=== PATIENT | female | born 1940 | race Caucasian/White ===

== ENCOUNTER → 2016-11-08 | Outpatient (CLI) | payer BC ==
[~2016-11-08] MED LIST: ASPEC81 PO; CRG125 PO; GLC500 PO; LISI-461 PO; PANT40TA PO; SIMV-151 PO
--- NOTE | 2016-11-09 14:35 | MAMMOGRAPHY REPORT ---
BILATERAL DIGITAL SCREENING MAMMOGRAM WITH CAD: 11/08/2016 CLINICAL HISTORY: Routine screening. Patient has no complaints. TECHNIQUE: Bilateral CC and MLO views as well as left cleavage view were obtained. Current study wa s also evaluated with a Computer Aided Detection (CAD) system. COMPARISON: Comparison is made to exams dated: 11/05/2015 mammogram, 07/01/2014 mammogram, 01/19/2012 mammogram, 01/18/2011 mammogram, 01/20/2010 ultrasound, and 01/20/2010 mammogram - [facility] enter. BREAST COMPOSITION: There are scattered areas of fibroglandular density in both breasts. FINDINGS: There are mild vascular calcifications in the breasts. Scattered round, punctate and shannon gn rim calcifications. No suspicious mass, architectural distortion or cluster of suspicious microc alcifications is seen. IMPRESSION: ACR BI-RADS CATEGORY 1: NEGATIVE There is no mammographic evidence of malignancy. A 1 year screening mammogram is recommended. The p atient will receive written notification of the results. Approximately 10% of breast cancers are not detected with mammography. A negative mammographic repor t should not delay biopsy if a clinically suggestive mass is present. Karla Bishop M.D. ay/:11/08/2016 17:08:13 Certified Drug Counselor: Tabatha KING(R)(M), [facility] letter sent: Normal 1/2 BI-RADS Code: ACR BI-RADS Category 1: Negative
== END | disposition home or self-care (01) ==
LOC: C.MAMM 08:52
PROVIDERS: ATTEND Family Medicine
DX: Z12.31 Encounter for screening mammogram for malignant neoplasm of breast (principal)

== ENCOUNTER → 2017-11-10 | Outpatient (CLI) | payer BC ==
--- NOTE | 2017-11-13 07:48 | MAMMOGRAPHY REPORT ---
BILATERAL DIGITAL SCREENING MAMMOGRAM TOMOSYNTHESIS WITH CAD: 11/10/2017 CLINICAL HISTORY: Routine screening. TECHNIQUE: Breast tomosynthesis in addition to standard 2D mammography was performed. Current study was also evaluated with a Computer Aided Detection (CAD) system. COMPARISON: Comparison is made to exams dated: 11/08/2016 mammogram, 11/05/2015 mammogram, 07/01/2014 mammogram, 01/19/2012 mammogram, 01/18/2011 mammogram, and 01/13/2010 mammogram - [facility]ter. BREAST COMPOSITION: There are scattered areas of fibroglandular density in both breasts. FINDINGS: No suspicious masses, calcifications, or areas of architectural distortion are noted in ei ther breast. There has been no significant interval change compared to prior exams. Scattered bilater al benign-appearing calcifications are not significantly changed. IMPRESSION: ACR BI-RADS CATEGORY 2: BENIGN There is no mammographic evidence of malignancy. A 1 year screening mammogram is recommended. The pa tient will receive written notification of the results. Approximately 10% of breast cancers are not detected with mammography. A negative mammographic report should not delay biopsy if a clinically suggestive mass is present. Joleen Rueda M.D. /:11/10/2017 15:13:55 Roll Line Operator: Azam KING(Genny)(Bree), [facility] letter sent: Normal 1/2 BI-RADS Code: ACR BI-RADS Category 2: Benign
== END | disposition home or self-care (01) ==
LOC: C.MAMM 08:37
PROVIDERS: ATTEND Family Medicine
DX: Z12.31 Encounter for screening mammogram for malignant neoplasm of breast (principal)

== ENCOUNTER 2021-04-02 09:28 | Inpatient (IN) ==
[2021-04-02] MEDS ORDERED: ALBUT/IPRATROP 3MG/0.5MG NEB 3 ML VIAL INH STA (09:38)
[2021-04-02] MEDS ORDERED: STAT IV Infusion **Titration per Protocol STA ×3 (09:47→17:29)
--- NOTE | 2021-04-02 09:47 | Emergency Department Note ---
History of Present Illness General Chief complaint: Weakness Stated complaint: WEAKNESS Time Seen by Provider: 04/02/21 09:31 History of Present Illness 81-year-old female presents to the ED with a chief complaint of feeling " weary". When asked specific questions, she feels short winded and very weak. She was brought in by EMS. EMS state that BLS on scene had a blood pressure of 66 systolic. She was given a 600 cc normal saline bolus by EMS prior to arrival. They also found her saturations to be 60% on room air. She does not use home oxygen. She was 79% on room air here. The patient reports pedal edema for the past 4 weeks. No additional complaints. The daughter reported to EMS that the patient has been in a steady and progressive decline since January. The patient hit her life alert button today to [facility]. Home Medications Medication Instructions Recorded Confirmed Type aspirin 81 mg tablet,delayed 81 mg PO DAILY 04/12/19 05/01/19 History release (Enteric Coated Aspirin) carvedilol 12.5 mg tablet (Coreg) 12.5 mg PO BID 04/12/19 04/02/21 History loratadine 10 mg tablet (Claritin) 10 mg PO DAILY 04/12/19 05/01/19 History multivitamin 1 tab PO DAILY 04/12/19 05/01/19 History simvastatin 20 mg tablet 20 mg PO QPM 04/12/19 05/01/19 History vitamin B complex (B 1 tab PO .3 x a wk tab 04/12/19 05/01/19 History Complex-Vitamin B12) atorvastatin 40 mg tablet (Lipitor) 40 mg PO HS 04/02/21 04/02/21 History hydrochlorothiazide 12.5 mg capsule 12.5 mg PO DAILY 04/02/21 04/02/21 History losartan 50 mg tablet (Cozaar) 50 mg PO DAILY 04/02/21 04/02/21 History metformin 500 mg tablet,extended 1,000 mg PO BIDM 04/02/21 04/02/21 History release 24 hr Allergies Allergy/AdvReac Type Severity Reaction Status Date / Time Cipro Allergy Mild RASH Verified 10/05/15 07:28 ciprofloxacin Allergy Mild RASH Verified 04/24/19 08:29 clindamycin Allergy Mild Unverified 04/24/19 08:29 Past Med/Surg History Medical History (Updated 04/02/21 @ 13:08 by Bryce Potts DO) B12 deficiency Chronic kidney disease Diabetes H/O cardiomyopathy H/O gastric ulcer H/O malignant neoplasm of endometrium Hyperlipidemia Hypertension Osteoarthritis Stasis dermatitis SVT (supraventricular tachycardia) Surgical History H/O abdominal hysterectomy H/O tubal ligation Social History Smoking Status: Unknown if ever smoked Hx Alcohol Use: No Hx Substance Use: No Preferred Language: Malaysian Communication Ability: Effective Visual Impairment: Limited Hearing Ability: Normal Beliefs That Will Affect Care: None marital status: Current Living Situation: Alone current occupational status: retired Feels Safe at Home: Yes Review of Systems A total of 10 systems reviewed and were otherwise negative Physical Exam Vital Signs Vital Signs - 24 hr 04/02/21 09:29 04/02/21 09:30 04/02/21 09:37 Temperature 36.5 C Temperature Source Oral Pulse Rate 116 H 117 H Pulse Rate [Apical] Pulse Rate from SpO2 Sensor 118 H Respiratory Rate 31 H 42 H Respiratory Effort / Characteristics Blood Pressure 69/50 L 69/50 L Blood Pressure Mean 56 56 Pulse Oximetry 73 L 91 94 Oxygen Delivery Method Room Air Nasal Cannula Oxygen Flow Rate 4 Fraction of Inspired Oxygen SaO2/FiO2 Ratio Sepsis Recent Fever Within 48 Hours No Sepsis New/Unexplained Change in Mental Status No Sepsis Action Taken by Nursing Physician Notified End-Tidal CO2 04/02/21 09:45 04/02/21 09:54 04/02/21 09:58 Temperature Temperature Source Pulse Rate 117 H 116 H Pulse Rate [Apical] 116 H Pulse Rate from SpO2 Sensor 117 H Respiratory Rate 35 H 22 Respiratory Effort / Characteristics Spontaneous Blood Pressure 62/49 L Blood Pressure Mean 53 Pulse Oximetry 94 93 96 Oxygen Delivery Method BiPAP BiPAP BiPAP Oxygen Flow Rate Fraction of Inspired Oxygen 40 40 40 SaO2/FiO2 Ratio 235 Sepsis Recent Fever Within 48 Hours Sepsis New/Unexplained Change in Mental Status Sepsis Action Taken by Nursing End-Tidal CO2 04/02/21 10:00 04/02/21 10:26 04/02/21 10:31 Temperature Temperature Source Pulse Rate 117 H 116 H Pulse Rate [Apical] Pulse Rate from SpO2 Sensor 117 H 115 H Respiratory Rate 27 H 23 21 Respiratory Effort / Characteristics Blood Pressure 71/55 L 61/45 L 64/34 L Blood Pressure Mean 60 50 44 Pulse Oximetry 90 89 L Oxygen Delivery Method BiPAP BiPAP Oxygen Flow Rate Fraction of Inspired Oxygen 40 SaO2/FiO2 Ratio Sepsis Recent Fever Within 48 Hours Sepsis New/Unexplained Change in Mental Status Sepsis Action Taken by Nursing End-Tidal CO2 04/02/21 10:40 04/02/21 10:48 04/02/21 10:52 Temperature Temperature Source Pulse Rate 114 H 113 H 70 Pulse Rate [Apical] Pulse Rate from SpO2 Sensor 114 H 113 H Respiratory Rate 20 Respiratory Effort / Characteristics Blood Pressure Blood Pressure Mean 42 Pulse Oximetry 97 97 94 Oxygen Delivery Method Mechanical Vent Mechanical Vent Mechanical Vent Oxygen Flow Rate Fraction of Inspired Oxygen 80 80 80 SaO2/FiO2 Ratio Sepsis Recent Fever Within 48 Hours Sepsis New/Unexplained Change in Mental Status Sepsis Action Taken by Nursing End-Tidal CO2 41 39 42 04/02/21 10:56 04/02/21 11:01 04/02/21 11:06 Temperature Temperature Source Pulse Rate 70 81 63 Pulse Rate [Apical] Pulse Rate from SpO2 Sensor 59 L 51 L 64 Respiratory Rate Respiratory Effort / Characteristics Blood Pressure 99/61 L 106/63 108/77 Blood Pressure Mean 73 77 87 Pulse Oximetry 94 92 95 Oxygen Delivery Method Oxygen Flow Rate Fraction of Inspired Oxygen SaO2/FiO2 Ratio Sepsis Recent Fever Within 48 Hours Sepsis New/Unexplained Change in Mental Status Sepsis Action Taken by Nursing End-Tidal CO2 40 40 38 04/02/21 11:10 04/02/21 11:15 04/02/21 11:21 Temperature Temperature Source Pulse Rate 62 89 80 Pulse Rate [Apical] Pulse Rate from SpO2 Sensor 63 73 82 Respiratory Rate Respiratory Effort / Characteristics Blood Pressure 111/83 149/69 H Blood Pressure Mean 92 95 Pulse Oximetry 96 94 96 Oxygen Delivery Method Oxygen Flow Rate Fraction of Inspired Oxygen SaO2/FiO2 Ratio Sepsis Recent Fever Within 48 Hours Sepsis New/Unexplained Change in Mental Status Sepsis Action Taken by Nursing End-Tidal CO2 39 43 39 04/02/21 11:27 04/02/21 11:30 04/02/21 11:34 Temperature Temperature Source Pulse Rate Pulse Rate [Apical] 89 Pulse Rate from SpO2 Sensor 84 90 Respiratory Rate 24 Respiratory Effort / Characteristics Spontaneous Blood Pressure 164/61 H 149/90 H Blood Pressure Mean 95 109 Pulse Oximetry 97 96 97 Oxygen Delivery Method Oxygen Flow Rate Fraction of Inspired Oxygen SaO2/FiO2 Ratio Sepsis Recent Fever Within 48 Hours Sepsis New/Unexplained Change in Mental Status Sepsis Action Taken by Nursing End-Tidal CO2 40 41 04/02/21 11:38 04/02/21 11:41 04/02/21 11:46 Temperature Temperature Source Pulse Rate Pulse Rate [Apical] Pulse Rate from SpO2 Sensor 97 H 50 L 76 Respiratory Rate Respiratory Effort / Characteristics Blood Pressure 148/87 H 155/76 H 130/68 Blood Pressure Mean 107 102 88 Pulse Oximetry 97 96 96 Oxygen Delivery Method Oxygen Flow Rate Fraction of Inspired Oxygen SaO2/FiO2 Ratio Sepsis Recent Fever Within 48 Hours Sepsis New/Unexplained Change in Mental Status Sepsis Action Taken by Nursing End-Tidal CO2 38 39 38 04/02/21 11:51 04/02/21 11:56 04/02/21 12:01 Temperature Temperature Source Pulse Rate 78 Pulse Rate [Apical] Pulse Rate from SpO2 Sensor 63 53 L 50 L Respiratory Rate Respiratory Effort / Characteristics Blood Pressure 130/55 L 106/53 L 115/80 Blood Pressure Mean 80 70 91 Pulse Oximetry 96 96 97 Oxygen Delivery Method Oxygen Flow Rate Fraction of Inspired Oxygen SaO2/FiO2 Ratio Sepsis Recent Fever Within 48 Hours Sepsis New/Unexplained Change in Mental Status Sepsis Action Taken by Nursing End-Tidal CO2 38 36 35 04/02/21 12:06 04/02/21 12:10 04/02/21 12:16 Temperature Temperature Source Pulse Rate 98 H 85 100 H Pulse Rate [Apical] Pulse Rate from SpO2 Sensor 66 53 L 57 L Respiratory Rate Respiratory Effort / Characteristics Blood Pressure 101/59 L 107/70 92/54 L Blood Pressure Mean 73 82 66 Pulse Oximetry 96 96 96 Oxygen Delivery Method Oxygen Flow Rate Fraction of Inspired Oxygen SaO2/FiO2 Ratio Sepsis Recent Fever Within 48 Hours Sepsis New/Unexplained Change in Mental Status Sepsis Action Taken by Nursing End-Tidal CO2 36 40 36 04/02/21 12:20 04/02/21 12:27 04/02/21 12:30 Temperature Temperature Source Pulse Rate 94 H 91 H 79 Pulse Rate [Apical] Pulse Rate from SpO2 Sensor 73 57 L 62 Respiratory Rate Respiratory Effort / Characteristics Blood Pressure 98/59 L 80/55 L 89/60 L Blood Pressure Mean 72 63 69 Pulse Oximetry 97 97 96 Oxygen Delivery Method Oxygen Flow Rate Fraction of Inspired Oxygen SaO2/FiO2 Ratio Sepsis Recent Fever Within 48 Hours Sepsis New/Unexplained Change in Mental Status Sepsis Action Taken by Nursing End-Tidal CO2 36 36 39 04/02/21 12:37 04/02/21 12:40 04/02/21 12:46 Temperature Temperature Source Pulse Rate 88 88 97 H Pulse Rate [Apical] Pulse Rate from SpO2 Sensor 71 80 95 H Respiratory Rate Respiratory Effort / Characteristics Blood Pressure 120/72 124/82 113/81 Blood Pressure Mean 88 96 91 Pulse Oximetry 98 97 97 Oxygen Delivery Method Oxygen Flow Rate Fraction of Inspired Oxygen SaO2/FiO2 Ratio Sepsis Recent Fever Within 48 Hours Sepsis New/Unexplained Change in Mental Status Sepsis Action Taken by Nursing End-Tidal CO2 36 36 37 04/02/21 12:50 04/02/21 12:55 Temperature Temperature Source Pulse Rate 97 H 99 H Pulse Rate [Apical] Pulse Rate from SpO2 Sensor 93 H 92 H Respiratory Rate Respiratory Effort / Characteristics Blood Pressure 121/92 116/63 Blood Pressure Mean 101 80 Pulse Oximetry 96 97 Oxygen Delivery Method Oxygen Flow Rate Fraction of Inspired Oxygen SaO2/FiO2 Ratio Sepsis Recent Fever Within 48 Hours Sepsis New/Unexplained Change in Mental Status Sepsis Action Taken by Nursing End-Tidal CO2 37 37 CONSTITUTIONAL/VITAL SIGNS: Reviewed / noted above. GENERAL: Generally weak. No distress. INTEGUMENTARY: Warm, dry, and pale. HEAD: Normocephalic. EYES: without scleral icterus or trauma. ENT/OROPHARYNX: clear and moist. LYMPHADENOPATHY/NECK: Is supple without lymphadenopathy or meningismus. RESPIRATORY: Diminished bilaterally. Patient's respiratory effort seems to be somewhat weak. CARDIOVASCULAR: Regular rate and rhythm. GI/ABDOMEN: Soft and nontender. No organomegaly or pulsatile mass. EXTREMITIES: Cool periphery. Positive significant pitting pedal edema in the lower extremities. Some mild erythema in the lower extremities. BACK: No CVA tenderness. NEUROLOGICAL: Patient is awake but seems drowsy. Answers questions appropriately. PSYCHIATRIC: normal affect. MUSCULOSKELETAL: Chronically ill-appearing with poor muscle tone. TRIAGE NURSING DOCUMENTATION REVIEWED. Procedures ABG Interpretation ABG Interpretation 1: ABG Results: pH is 7.11, PCO2 is 84, PaO2 is 104 with a 95% saturation on 40% oxygen on BiPAP. Additional Comments: Patient appears to have a respiratory acidosis with adequate oxygenation and an adequate ventilation. This ABG was performed when the patient arrived. She was placed on BiPAP just minutes prior to ABG ABG Interpretation 2: ABG Results: 7.1 /96% Additional Comments: Improvement of ventilation status as well as acidosis. Continued respiratory acidosis and possibly metabolic acidosis. Central Line Placement Right IJ: Time Out Performed: Yes Patient Placed on Monitor/Pulse Ox: Yes MD Prep: mask, gown and gloves Central Line Prep: Povidone-Iodine 1% and sterile drapes applied Ultrasound Used for Placement: Yes Central Line Lumen Inserted: triple Post Procedure: sutured in place, good blood return, all ports aspirated, flushed, capped and sterile dressing applied Post Procedure X-Ray: tip of catheter in good position and no pneumothorax seen Patient Tolerated Procedure: well and no complications Intubation Time out performed: Yes sedative: Etomidate Mg Given: 20 Laryngoscope: fiber optic video scope Assist Device Used: fiber optic device ET Tube Size: 7 ET Tube Uncuffed: No Tube Secured Depth (cm): 21 Tube Secured Location: lips Tube Placement Confirmation: visualized tube passing through cords, equal breath sounds bilaterally, no breath sounds over epigastrium and confirmation by capnometry Patient Tolerated Procedure: well and no complications Intubation Complications: none Course Administered Medications Norepinephrine Bitartrate (Levophed/D5w) 8 mg in 508 mls @ 19.126 mls/hr IV .Q24H FARHAT; Protocol Stop: 05/02/21 09:59 Last Titration: 04/02/21 12:59 Dose: 0.4 mcg/kg/min, 153 mls/hr Documented by: [id number] Titration: 04/02/21 12:32 Dose: 0.5 mcg/kg/min, 191.3 mls/hr Documented by: [id number] Titration: 04/02/21 12:20 Dose: 0.4 mcg/kg/min, 153 mls/hr Documented by: [id number] Titration: 04/02/21 11:45 Dose: 0.3 mcg/kg/min, 114.8 mls/hr Documented by: [id number] Titration: 04/02/21 11:34 Dose: 0.4 mcg/kg/min, 153 mls/hr Documented by: [id number] Titration: 04/02/21 10:55 Dose: 0.5 mcg/kg/min, 191.3 mls/hr Documented by: [id number] Titration: 04/02/21 10:49 Dose: 0.4 mcg/kg/min, 153 mls/hr Documented by: [id number] Titration: 04/02/21 10:47 Dose: 0.3 mcg/kg/min, 114.8 mls/hr Documented by: [id number] Titration: 04/02/21 10:45 Dose: 0.2 mcg/kg/min, 76.5 mls/hr Documented by: [id number] Titration: 04/02/21 10:44 Dose: 0.13 mcg/kg/min, 49.7 mls/hr Documented by: [id number] Titration: 04/02/21 10:41 Dose: 0.11 mcg/kg/min, 42.1 mls/hr Documented by: [id number] Titration: 04/02/21 10:35 Dose: 0.09 mcg/kg/min, 34.4 mls/hr Documented by: [id number] Titration: 04/02/21 10:26 Dose: 0.07 mcg/kg/min, 26.8 mls/hr Documented by: [id number] Admin: 04/02/21 10:18 Dose: 0.05 mcg/kg/min, 19.1 mls/hr Documented by: [id number] Cosigned by: [id number] Sodium Chloride (Nss 1000ml) 2,000 mls @ 999 mls/hr IV .Q2H1M ONE Stop: 04/02/21 13:12 Last Infusion: 04/02/21 12:20 Dose: 0 mls/hr Documented by: [id number] Admin: 04/02/21 10:30 Dose: 999 mls/hr Documented by: [id number] Discontinued Medications Albuterol (Albut/Ipratrop 3mg/0.5mg Neb 3 Ml Vial) 3 ml INH NOW STA Stop: 04/02/21 09:39 Last Admin: 04/02/21 10:01 Dose: 3 ml Documented by: [id number] Albuterol (Albut/Ipratrop 3mg/0.5mg Neb 3 Ml Vial) 3 ml NEB NOW STA Stop: 04/02/21 11:07 Last Admin: 04/02/21 11:35 Dose: 3 ml Documented by: [id number] Calcium Gluconate (Calcium Gluconate 1000 Mg/60 Ml Nss) Confirm Administered Dose 1,000 mg IV .STK-MED ONE Stop: 04/02/21 10:33 Last Admin: 04/02/21 10:38 Dose: 1,000 mg Documented by: [id number] Dextrose (Dextrose 50% 50 Ml Syringe) 50 ml IV NOW ONE Stop: 04/02/21 11:07 Last Admin: 04/02/21 11:25 Dose: 50 ml Documented by: [id number] Calcium Gluconate () 1,000 mg in 60 mls @ 240 mls/hr IV NOW STA Stop: 04/02/21 11:20 Last Admin: 04/02/21 11:12 Dose: Not Given Documented by: [id number] Lorazepam (Ativan) 2 mg in 4 mls @ 4 mls/min IV NOW STA Stop: 04/02/21 11:07 Last Admin: 04/02/21 12:15 Dose: 4 mls/min Documented by: [id number] Piperacillin Sod/Tazobactam Sod (Zosyn) 4.5 gm in 120 mls @ 240 mls/hr IV NOW ONE Stop: 04/02/21 11:35 Last Infusion: 04/02/21 11:59 Dose: 0 mls/hr Documented by: [id number] Admin: 04/02/21 11:26 Dose: 240 mls/hr Documented by: [id number] Insulin Human Regular (Novolin-R Insulin Per Unit Charge) 10 units IV NOW STA Stop: 04/02/21 11:07 Last Admin: 04/02/21 11:26 Dose: 10 units Documented by: [id number] Cosigned by: [id number] Lorazepam (Lorazepam 2 Mg/4 Ml Vial) Confirm Administered Dose 2 mg .ROUTE .STK- MED ONE Stop: 04/02/21 10:39 Last Increment: 04/02/21 10:41 Dose: 1 mg Documented by: [id number] Lorazepam (Lorazepam 2 Mg/4 Ml Vial) Confirm Administered Dose 2 mg .ROUTE .STK- MED ONE Stop: 04/02/21 11:01 Last Increment: 04/02/21 11:39 Dose: 1 mg Documented by: [id number] Increment: 04/02/21 11:02 Dose: 1 mg Documented by: [id number] Miscellaneous (Stat Iv Infusion Titration Per Protocol) 1 ea N/A NOW STA Stop: 04/02/21 09:48 Last Admin: 04/02/21 10:30 Dose: Not Given Documented by: [id number] Miscellaneous (Rapid Sequence Induction Bag) Confirm Administered Dose 1 ea .ROUTE .STK-MED ONE Stop: 09/17/21 10:31 Last Admin: 04/02/21 10:38 Dose: 1 ea Documented by: [id number] Sodium Bicarbonate (Sodium Bicarb 8.4% Inj 50 Meq/50 Ml Syr) 100 meq IV NOW STA Stop: 04/02/21 11:07 Last Admin: 04/02/21 11:25 Dose: 100 meq Documented by: [id number] Critical Care Time Critical Care Time: Yes Total Critical Care Time: 90 I have personally spent 90 minutes of critical care time in the direct management of this patient. This includes bedside care, interpretation of diagnostic studies, and testing, discussion with consultants, patient, and family members, and other required patient management activities. This 90 minutes is in excess of all separately billable procedures. Medical Decision Making Differential Diagnosis Differential includes acute coronary syndrome, myocardial infarction, CVA, TIA, anemia, infection, pneumonia, UTI, pyelonephritis, poor nutrition, dehydration, electrolyte disturbance,hypoglycemia. Medical Records Attestation: I reviewed the patient's medical records. Home Medications Current Medication List: was personally reviewed by me Laboratory Data Attestation: I reviewed the patient's lab results. Result diagrams: 04/02/21 09:53 04/02/21 09:53 Lab Results 04/02/21 04/02/21 04/02/21 Range/Units 09:52 09:53 09:53 WBC 13.99 H (4.8-10.8) K/uL RBC 4.56 (4.2-5.4) M/uL Hgb 14.4 (12.0-16.0) g/dL POC Hgb 16.0 (12.0-16.0) g/dl Hct 45.4 (37-47) % POC Hct 47 (37-47) % MCV 99.6 (80-100) fL MCH 31.6 (25-34) pg MCHC 31.7 L (32-36) g/dL RDW Std Deviation 59.4 H (36.4-46.3) fL RDW Coeff of Madyson 16.4 H (11.5-14.5) % Plt Count 251 (130-400) K/uL MPV 11.6 H (7.4-10.4) fL Immature Gran % (Auto) 0.4 % Neut % (Auto) 87.8 % Lymph % (Auto) 8.2 % [place] % (Auto) 3.6 % Eos % (Auto) 0.0 % Baso % (Auto) 0.0 % Neut # (Auto) 12.28 H (1.4-6.5) K/uL Lymph # (Auto) 1.15 L (1.2-3.4) K/uL [place] # (Auto) 0.51 (0.11-0.59) K/uL Eos # (Auto) 0.00 (0-0.5) K/uL Baso # (Auto) 0.00 (0-0.2) K/uL Immature Gran # (Auto) 0.05 H (0.00-0.02) K/uL PT (9.0-12.0) Seconds INR (0.9-1.1) APTT (21.0-31.0) Seconds PTT Ratio POC pH 7.12 L* (7.35-7.45) POC pCO2 84 H (35-46) mmHg POC pO2 104 H (80-95) mmHg POC HCO3 27 H (19-24) alecia/L POC Total CO2 30 (24-31) mmol/L POC Base Excess -2.0 (-9-1.8) alecia/L POC ABG O2 Sat 95.0 (90-95) % POC Sodium 134 L (135-144) mmol/L Sodium 133 L (136-145) mmol/L POC Potassium 6.6 H* (3.3-5.0) mmol/L Potassium 6.4 H* (3.5-5.1) mmol/L Chloride 102 (98-107) mmol/L Carbon Dioxide 28 (21-32) mmol/L Anion Gap 3.0 (3-11) BUN 54 H (7-18) mg/dl Creatinine 2.75 H (0.6-1.2) mg/dl Est Cr Clr Drug Dosing 17.1 ml/min Est GFR ( Amer) 18.0 ml/min Est GFR (Non-Af Amer) 15.5 ml/min BUN/Creatinine Ratio 19.7 (10-20) Glucose 183 H (70-99) mg/dl Lactate (0.4-2.0) mmol/L Calcium 9.0 (8.5-10.1) mg/dl Magnesium 2.1 (1.8-2.4) mg/dl Total Bilirubin 0.5 (0.2-1) mg/dl AST 13 L (15-37) U/L ALT 26 (12-78) U/L Alkaline Phosphatase 97 (45-117) U/L Troponin I 0.036 (0-0.045) ng/ml NT-Pro-B Natriuret Pep 84690 H (0-1800) pg/ml Total Protein 6.7 (6.4-8.2) gm/dl Albumin 3.3 L (3.4-5.0) gm/dl Globulin 3.4 (2.5-4.0) gm/dl Albumin/Globulin Ratio 1.0 (0.9-2) Urine Color Urine Appearance (Clear) Urine pH (4.5-7.5) Ur Specific [place] (1.000-1.030) Urine Protein (Negative) Urine Glucose (UA) (Negative) Urine Ketones (Negative) Urine Blood (Negative) Urine Nitrite (Negative) Urine Bilirubin (Negative) Urine Urobilinogen (Negative) Ur Leukocyte Esterase (Negative) Urine WBC (Auto) (0-5) /hpf Urine RBC (Auto) (0-4) /hpf U Hyaline Cast (Auto) (0-5) /lpf U Epithel Cells (Auto) (0-5) /lpf Urine Bacteria (Auto) (Negative) Urine Yeast COVID-19 Eval Order SARS-CoV-2 (PCR) (Negative) 04/02/21 04/02/21 04/02/21 Range/Units 09:53 09:53 10:12 WBC (4.8-10.8) K/uL RBC (4.2-5.4) M/uL Hgb (12.0-16.0) g/dL POC Hgb (12.0-16.0) g/dl Hct (37-47) % POC Hct (37-47) % MCV (80-100) fL MCH (25-34) pg MCHC (32-36) g/dL RDW Std Deviation (36.4-46.3) fL RDW Coeff of Madyson (11.5-14.5) % Plt Count (130-400) K/uL MPV (7.4-10.4) fL Immature Gran % (Auto) % Neut % (Auto) % Lymph % (Auto) % [place] % (Auto) % Eos % (Auto) % Baso % (Auto) % Neut # (Auto) (1.4-6.5) K/uL Lymph # (Auto) (1.2-3.4) K/uL [place] # (Auto) (0.11-0.59) K/uL Eos # (Auto) (0-0.5) K/uL Baso # (Auto) (0-0.2) K/uL Immature Gran # (Auto) (0.00-0.02) K/uL PT 11.0 (9.0-12.0) Seconds INR 1.1 (0.9-1.1) APTT 24.4 (21.0-31.0) Seconds PTT Ratio 0.9 POC pH (7.35-7.45) POC pCO2 (35-46) mmHg POC pO2 (80-95) mmHg POC HCO3 (19-24) alecia/L POC Total CO2 (24-31) mmol/L POC Base Excess (-9-1.8) alecia/L POC ABG O2 Sat (90-95) % POC Sodium (135-144) mmol/L Sodium (136-145) mmol/L POC Potassium (3.3-5.0) mmol/L Potassium (3.5-5.1) mmol/L Chloride (98-107) mmol/L Carbon Dioxide (21-32) mmol/L Anion Gap (3-11) BUN (7-18) mg/dl Creatinine (0.6-1.2) mg/dl Est Cr Clr Drug Dosing ml/min Est GFR ( Amer) ml/min Est GFR (Non-Af Amer) ml/min BUN/Creatinine Ratio (10-20) Glucose (70-99) mg/dl Lactate 2.6 H* (0.4-2.0) mmol/L Calcium (8.5-10.1) mg/dl Magnesium (1.8-2.4) mg/dl Total Bilirubin (0.2-1) mg/dl AST (15-37) U/L ALT (12-78) U/L Alkaline Phosphatase (45-117) U/L Troponin I (0-0.045) ng/ml NT-Pro-B Natriuret Pep (0-1800) pg/ml Total Protein (6.4-8.2) gm/dl Albumin (3.4-5.0) gm/dl Globulin (2.5-4.0) gm/dl Albumin/Globulin Ratio (0.9-2) Urine Color Dark Yellow Urine Appearance Cloudy A (Clear) Urine pH 5.0 (4.5-7.5) Ur Specific [place] 1.024 (1.000-1.030) Urine Protein 2+ H (Negative) Urine Glucose (UA) Negative (Negative) Urine Ketones Trace H (Negative) Urine Blood Negative (Negative) Urine Nitrite Negative (Negative) Urine Bilirubin 1+ H (Negative) Urine Urobilinogen Negative (Negative) Ur Leukocyte Esterase Trace H (Negative) Urine WBC (Auto) 5-10 H (0-5) /hpf Urine RBC (Auto) 0-4 (0-4) /hpf U Hyaline Cast (Auto) 10-30 H (0-5) /lpf U Epithel Cells (Auto) >30 H (0-5) /lpf Urine Bacteria (Auto) Negative (Negative) Urine Yeast Not Reportable COVID-19 Eval Order SARS-CoV-2 (PCR) (Negative) 04/02/21 04/02/21 04/02/21 Range/Units 10:12 10:12 11:18 WBC (4.8-10.8) K/uL RBC (4.2-5.4) M/uL Hgb (12.0-16.0) g/dL POC Hgb 15.3 (12.0-16.0) g/dl Hct (37-47) % POC Hct 45 (37-47) % MCV (80-100) fL MCH (25-34) pg MCHC (32-36) g/dL RDW Std Deviation (36.4-46.3) fL RDW Coeff of Madyson (11.5-14.5) % Plt Count (130-400) K/uL MPV (7.4-10.4) fL Immature Gran % (Auto) % Neut % (Auto) % Lymph % (Auto) % [place] % (Auto) % Eos % (Auto) % Baso % (Auto) % Neut # (Auto) (1.4-6.5) K/uL Lymph # (Auto) (1.2-3.4) K/uL [place] # (Auto) (0.11-0.59) K/uL Eos # (Auto) (0-0.5) K/uL Baso # (Auto) (0-0.2) K/uL Immature Gran # (Auto) (0.00-0.02) K/uL PT (9.0-12.0) Seconds INR (0.9-1.1) APTT (21.0-31.0) Seconds PTT Ratio POC pH 7.19 L* (7.35-7.45) POC pCO2 65 H (35-46) mmHg POC pO2 99 H (80-95) mmHg POC HCO3 25 H (19-24) alecia/L POC Total CO2 27 (24-31) mmol/L POC Base Excess -3.0 (-9-1.8) alecia/L POC ABG O2 Sat 96.0 H (90-95) % POC Sodium 133 L (135-144) mmol/L Sodium (136-145) mmol/L POC Potassium 6.3 H* (3.3-5.0) mmol/L Potassium (3.5-5.1) mmol/L Chloride (98-107) mmol/L Carbon Dioxide (21-32) mmol/L Anion Gap (3-11) BUN (7-18) mg/dl Creatinine (0.6-1.2) mg/dl Est Cr Clr Drug Dosing ml/min Est GFR ( Amer) ml/min Est GFR (Non-Af Amer) ml/min BUN/Creatinine Ratio (10-20) Glucose (70-99) mg/dl Lactate (0.4-2.0) mmol/L Calcium (8.5-10.1) mg/dl Magnesium (1.8-2.4) mg/dl Total Bilirubin (0.2-1) mg/dl AST (15-37) U/L ALT (12-78) U/L Alkaline Phosphatase (45-117) U/L Troponin I (0-0.045) ng/ml NT-Pro-B Natriuret Pep (0-1800) pg/ml Total Protein (6.4-8.2) gm/dl Albumin (3.4-5.0) gm/dl Globulin (2.5-4.0) gm/dl Albumin/Globulin Ratio (0.9-2) Urine Color Urine Appearance (Clear) Urine pH (4.5-7.5) Ur Specific [place] (1.000-1.030) Urine Protein (Negative) Urine Glucose (UA) (Negative) Urine Ketones (Negative) Urine Blood (Negative) Urine Nitrite (Negative) Urine Bilirubin (Negative) Urine Urobilinogen (Negative) Ur Leukocyte Esterase (Negative) Urine WBC (Auto) (0-5) /hpf Urine RBC (Auto) (0-4) /hpf U Hyaline Cast (Auto) (0-5) /lpf U Epithel Cells (Auto) (0-5) /lpf Urine Bacteria (Auto) (Negative) Urine Yeast COVID-19 Eval Order Covid19 at [facility] SARS-CoV-2 (PCR) NEGATIVE (Negative) 04/02/21 Range/Units 11:47 WBC (4.8-10.8) K/uL RBC (4.2-5.4) M/uL Hgb (12.0-16.0) g/dL POC Hgb (12.0-16.0) g/dl Hct (37-47) % POC Hct (37-47) % MCV (80-100) fL MCH (25-34) pg MCHC (32-36) g/dL RDW Std Deviation (36.4-46.3) fL RDW Coeff of Madyson (11.5-14.5) % Plt Count (130-400) K/uL MPV (7.4-10.4) fL Immature Gran % (Auto) % Neut % (Auto) % Lymph % (Auto) % [place] % (Auto) % Eos % (Auto) % Baso % (Auto) % Neut # (Auto) (1.4-6.5) K/uL Lymph # (Auto) (1.2-3.4) K/uL [place] # (Auto) (0.11-0.59) K/uL Eos # (Auto) (0-0.5) K/uL Baso # (Auto) (0-0.2) K/uL Immature Gran # (Auto) (0.00-0.02) K/uL PT (9.0-12.0) Seconds INR (0.9-1.1) APTT (21.0-31.0) Seconds PTT Ratio POC pH (7.35-7.45) POC pCO2 (35-46) mmHg POC pO2 (80-95) mmHg POC HCO3 (19-24) alceia/L POC Total CO2 (24-31) mmol/L POC Base Excess (-9-1.8) alecia/L POC ABG O2 Sat (90-95) % POC Sodium (135-144) mmol/L Sodium (136-145) mmol/L POC Potassium (3.3-5.0) mmol/L Potassium (3.5-5.1) mmol/L Chloride (98-107) mmol/L Carbon Dioxide (21-32) mmol/L Anion Gap (3-11) BUN (7-18) mg/dl Creatinine (0.6-1.2) mg/dl Est Cr Clr Drug Dosing ml/min Est GFR ( Amer) ml/min Est GFR (Non-Af Amer) ml/min BUN/Creatinine Ratio (10-20) Glucose (70-99) mg/dl Lactate 2.9 H* (0.4-2.0) mmol/L Calcium (8.5-10.1) mg/dl Magnesium (1.8-2.4) mg/dl Total Bilirubin (0.2-1) mg/dl AST (15-37) U/L ALT (12-78) U/L Alkaline Phosphatase (45-117) U/L Troponin I (0-0.045) ng/ml NT-Pro-B Natriuret Pep (0-1800) pg/ml Total Protein (6.4-8.2) gm/dl Albumin (3.4-5.0) gm/dl Globulin (2.5-4.0) gm/dl Albumin/Globulin Ratio (0.9-2) Urine Color Urine Appearance (Clear) Urine pH (4.5-7.5) Ur Specific [place] (1.000-1.030) Urine Protein (Negative) Urine Glucose (UA) (Negative) Urine Ketones (Negative) Urine Blood (Negative) Urine Nitrite (Negative) Urine Bilirubin (Negative) Urine Urobilinogen (Negative) Ur Leukocyte Esterase (Negative) Urine WBC (Auto) (0-5) /hpf Urine RBC (Auto) (0-4) /hpf U Hyaline Cast (Auto) (0-5) /lpf U Epithel Cells (Auto) (0-5) /lpf Urine Bacteria (Auto) (Negative) Urine Yeast COVID-19 Eval Order SARS-CoV-2 (PCR) (Negative) Imaging Data Radiologist's Impression: Chest X-Ray 04/02/21 09:38 XR chest 1V portable CLINICAL HISTORY: Dyspnea COMPARISON STUDY: Chest radiograph April 14, 2015. FINDINGS: There is no pneumothorax. Moderate cardiomegaly is noted. There are small bilateral pleural effusions with bibasilar opacities. There is no evidence for pulmonary edema. IMPRESSION: 1. Small bilateral pleural effusions with bibasilar opacities which may reflect an infectious process or atelectasis. Radiographic follow up is recommended. 2. Moderate cardiomegaly. No evidence for overt pulmonary edema. ACT 112: Negative or not required by law. Electronically signed by: Ramon Dowling M.D. 04/02/2021 10:33 AM Chest X-Ray 04/02/21 11:06 XR chest 1V portable HISTORY: 81 years-old Female s/p intubation/central line acute respiratory jesusita lure COMPARISON: Chest radiograph of same day at 10:03 AM TECHNIQUE: Supine AP view of the chest FINDINGS: Cardiac silhouette is enlarged. Endotracheal tube overlies the midline, 4.3 cm superior to the jerry. Right IJ central venous catheter distal tip terminates in the expected location of the proximal to mid SVC. No pneumothorax. Layering pleural effusions, left greater than right with bibasilar consolidation. Pulmonary vascular congestion. Degenerative changes of the shoulders and spine. IMPRESSION: 1. Lines and tubes as above. 2. Cardiomegaly with pulmonary vascular congestion and possible asymmetric right-sided pulmonary edema. 3. Left greater than right layering pleural effusions with bibasilar consolidation. ACT 112: Negative or not required by law. The above report was generated using voice recognition software. It may contain grammatical, syntax or spelling errors. Electronically signed by: Dalton Dueñas M.D. 04/02/2021 11:39 AM ECG Data Attestation: I personally reviewed and interpreted this ECG as follows: Additional Comments: Twelve-lead EKG: Per my interpretation there is a sinus tachycardia at a rate of 117. Left axis deviation. Right bundle branch block. Compared to an EKG dated April 13, 2015, ST depressions in the high lateral leads are now presents. T wave inversions in the anterior leads appear worse. No PVCs. MDM Narrative Patient presents with generalized weakness, shortness of breath and hypoxia with a prehospital hypotension that responded to 600 cc of normal saline. Ocular s aturations prehospital was 60%. Patient's respiratory effort seems to be diminished. She has poor air movement in her lungs bilaterally. She is obese. She has had increased pedal edema over the past 4 weeks and has significant pedal edema on my exam. Blood pressure 69/50. Heart rate is 116. Respiratory rate is 31. Initial ABG shows a respiratory acidosis with adequate oxygenation. The patient also is noted to be hyperkalemic with a potassium of 6.6 and a BUN of 54 and creatinine of 2.75. Unknown baseline on the kidney function test. Lactic acid is 2.6. BNP is elevated. Urine did not show infection. Troponin was negative. White blood cell count was 13.9. The patient received albuterol x2 as well as BiPAP initially. She was failing a BiPAP and there was subsequently intubated endotracheally. For her blood pressure as it was low initially, she was resuscitated with IV fluids and then norepinephrine. She received 2 L of IV fluids here as well as 600 cc by EMS. She also was placed on drip the sole was treated for hyper kalemia with calcium gluconate, IV dextrose and insulin, nebulized treatment as well as 2 A of sodium bicarbonate. She was also empirically given IV Zosyn. Chest x-ray shows some bilateral pleural effusions and possibly infectious etiology as well. Covid test negative. Second ABG did show improvement after intubation with her pH improving to 7.2 and a PCO2 down to 64. Her initial EKG shows a sinus tach at a rate of 117 with some deep T wave inversions in the high lateral and anterior leads. Right IJ central line was placed under ultrasound guidance. Intubation was performed with etomidate followed by Ativan. This was done with a glide scope. I did speak with Dr. Clayton from the ICU. He requested a noncontrast CT scan of the chest and the patient will be admitted there. I spoke with the hospital about the patient. The patient's blood pressure and oxygen saturations improved during her ED stay. Impression & Plan Acute hypercapnic respiratory failure, Acute hypotension, Acute dehydration, Acute renal failure, Acute hyperkalemia, Congestive heart failure Discharge Plan Visit Data Chief Complaint: Weakness Stated Complaint: WEAKNESS ED Provider: Bryce Potts Discharge Problem: Acute hypercapnic respiratory failure, Acute hypotension, Acute dehydration, Acute renal failure, Acute hyperkalemia, Congestive heart failure Patient Disposition: Admitted As Inpatient Forms Stand Alone Forms: [facility] Prescriptions Prescriptions: No Action loratadine [Claritin] 10 mg tablet 10 mg PO DAILY RF: 0 multivitamin tablet 1 tab PO DAILY RF: 0 vitamin B complex [B Complex-Vitamin B12] tablet 1 tab PO .3 x a wk RF: 0 aspirin [Enteric Coated Aspirin] 81 mg tablet,delayed release (DR/EC) 81 mg PO DAILY RF: 0 simvastatin 20 mg tablet 20 mg PO QPM RF: 0 carvedilol [Coreg] 12.5 mg tablet 12.5 mg PO BID RF: 0 losartan [Cozaar] 50 mg tablet 50 mg PO DAILY RF: 0 atorvastatin [Lipitor] 40 mg tablet 40 mg PO HS RF: 0 hydrochlorothiazide 12.5 mg capsule 12.5 mg PO DAILY RF: 0 metformin 500 mg tablet extended release 24 hr 1,000 mg PO BIDM RF: 0 Referrals Referrals: Lori Whittington MD [Primary Care Provider] -
[2021-04-02 10:05] LABS: iSTAT Arterial Blood Gas HCO3 27 meg/L (19-24); iSTAT Arterial Blood Gas pCO2 84 mmHg (35-46); iSTAT Arterial Blood Gas pH 7.12 (7.35-7.45); iSTAT Arterial Blood Gas pO2 104 mmHg (80-95); iSTAT Carbon Dioxide 30 mmol/L (24-31); iSTAT Hematocrit 47 % (37-47); iSTAT Potassium 6.6 mmol/L (3.3-5.0); iSTAT Sodium 134 mmol/L (135-144)
[2021-04-02 10:10] LABS: Hematocrit (blood only) 45.4 % (37-47); Hemoglobin 14.4 g/dL (12.0-16.0); Immature Granulocytes # (auto) 0.05 K/uL (0.00-0.02); Immature Granulocytes % (auto) 0.4 %; Lymphocytes # (auto) 1.15 K/uL (1.2-3.4); Lymphocytes % (auto) 8.2 %; Mean Corpuscular Hemoglobin 31.6 pg (25-34); Mean Corpuscular Hgb Conc 31.7 g/dL (32-36); Mean Corpuscular Volume 99.6 fL (80-100); Mean Platelet Volume 11.6 fL (7.4-10.4); Monocytes # (auto) 0.51 K/uL (0.11-0.59); Monocytes % (auto) 3.6 %; Neutrophils # (auto) 12.28 K/uL (1.4-6.5); Neutrophils % (auto) 87.8 %; Platelet Count 251 K/uL (130-400); RDW Coefficient of Variation 16.4 % (11.5-14.5); RDW Standard Deviation 59.4 fL (36.4-46.3); Red Blood Count 4.56 M/uL (4.2-5.4); White Blood Count 13.99 K/uL (4.8-10.8)
[2021-04-02] MEDS: NOREPINEPHRINE/D5W 8 MG/508 ML BAG IV SCH ×2 (10:18→13:53)
--- NOTE | 2021-04-02 10:21 | Electrocardiogram Report ---
Test Reason : Blood Pressure : / mmHG Vent. Rate : 117 BPM Atrial Rate : 117 BPM P-R Int : 180 ms QRS Dur : 146 ms QT Int : 366 ms P-R-T Axes : 000 -70 137 degrees QTc Int : 510 ms Probable Sinus tachycardia Left axis deviation Right bundle branch block Left ventricular hypertrophy Inferior infarct , age undetermined Anterolateral infarct , age undetermined Abnormal ECG When compared with ECG of 17-APR-2015 12:10, Significant changes have occurred Confirmed by Abdulaziz Acevedo ([id number]) on 04/02/2021 10:21:24 AM Referred By: Confirmed By:Abdulaziz Acevedo
[2021-04-02 10:28] LABS: Appearance Urine Cloudy (Clear); Bacteria Urine Automated Negative (Negative); Blood Urine Negative (Negative); Color Urine Dark Yellow; Epithelial Cell Urine Auto >30 /lpf (0-5); Glucose Urine UA Negative (Negative); Ketones Urine Trace (Negative); Leukocyte Esterase Urine Trace (Negative); Nitrite Urine Negative (Negative); Protein Urine 2+ (Negative); RBC Urine Automated 0-4 /hpf (0-4); Specific Gravity Urine 1.024 (1.000-1.030); Urobilinogen Urine Negative (Negative)
[2021-04-02] MEDS ORDERED: RAPID SEQUENCE INDUCTION BAG ONE (10:30)
[2021-04-02 10:31] LABS: INR 1.1 (0.9-1.1); Partial Thromboplastin Ratio 0.9; Partial Thromboplastin Time 24.4 Seconds (21.0-31.0)
[2021-04-02] MEDS ORDERED: CALCIUM GLUCONATE 1000 MG/60 ML NSS IV ONE (10:32)
[2021-04-02 10:34] LABS: Albumin Level 3.3 gm/dl (3.4-5.0); BUN Creatinine Ratio 19.7 (10-20); Creatinine Clr Calc Pharmacy 17.1 ml/min; Est GFR (Non-African American) 15.5 ml/min; Magnesium 2.1 mg/dl (1.8-2.4); Potassium 6.4 mmol/L (3.5-5.1)
--- NOTE | 2021-04-02 10:34 | XRay Report ---
XR chest 1V portable CLINICAL HISTORY: Dyspnea COMPARISON STUDY: Chest radiograph April 14, 2015. FINDINGS: There is no pneumothorax. Moderate cardiomegaly is noted. There are small bilateral pleural effusions with bibasilar opacities. There is no evidence for pulmonary edema. IMPRESSION: 1. Small bilateral pleural effusions with bibasilar opacities which may reflect an infectious process or atelectasis. Radiographic follow up is recommended. 2. Moderate cardiomegaly. No evidence for overt pulmonary edema. ACT 112: Negative or not required by law. Electronically signed by: Ramon Dowling M.D. 04/02/2021 10:33 AM
[2021-04-02 10:38] LABS: Bilirubin,Total 0.5 mg/dl (0.2-1); Globulin 3.4 gm/dl (2.5-4.0); Total Protein 6.7 gm/dl (6.4-8.2); Troponin I 0.036 ng/ml (0-0.045)
[2021-04-02] MEDS ORDERED: LORazepam 2 MG/4 ML VIAL ONE ×2 (10:38→11:00)
[2021-04-02 10:45] LABS: Bilirubin Urine 1+ (Negative)
[2021-04-02] MEDS ORDERED: CALCIUM GLUCONATE 1,000 MG/60 ML BAG IV STA (11:06)
[2021-04-02] MEDS ORDERED: LORazepam 1 MG/2 ML VIAL IV PRN (11:06)
[2021-04-02] MEDS ORDERED: LORazepam 2 MG/4 ML VIAL IV STA (11:06)
[2021-04-02] MEDS ORDERED: PIPERACILL/TAZOBAC CONSULT ACTIVE PRN (11:06)
[2021-04-02] MEDS ORDERED: PIPERACILLIN/TAZOBACTAM 4.5 GM/120 ML BAG IV ONE (11:06)
[2021-04-02] MEDS ORDERED: SODIUM BICARB 8.4% INJ 50 MEQ/50 ML SYR IV STA (11:06)
[2021-04-02] MEDS ORDERED: ALBUT/IPRATROP 3MG/0.5MG NEB 3 ML VIAL NEB STA (11:06)
[2021-04-02] MEDS ORDERED: DEXTROSE 50% 50 ML SYRINGE IV ONE (11:06)
[2021-04-02] MEDS ORDERED: NovoLIN-R INSULIN PER UNIT CHARGE IV STA (11:06)
[2021-04-02] MEDS ORDERED: SODIUM CHLORIDE 0.9% 1000ML 2,000 ML IV ONE (11:12)
[2021-04-02 11:33] LABS: iSTAT Arterial Blood Gas HCO3 25 meg/L (19-24); iSTAT Arterial Blood Gas pCO2 65 mmHg (35-46); iSTAT Arterial Blood Gas pH 7.19 (7.35-7.45); iSTAT Arterial Blood Gas pO2 99 mmHg (80-95); iSTAT Carbon Dioxide 27 mmol/L (24-31); iSTAT Hematocrit 45 % (37-47); iSTAT Hemoglobin 15.3 g/dl (12.0-16.0); iSTAT Potassium 6.3 mmol/L (3.3-5.0); iSTAT Sodium 133 mmol/L (135-144)
--- NOTE | 2021-04-02 11:40 | XRay Report ---
XR chest 1V portable HISTORY: 81 years-old Female s/p intubation/central line acute respiratory failure COMPARISON: Chest radiograph of same day at 10:03 AM TECHNIQUE: Supine AP view of the chest FINDINGS: Cardiac silhouette is enlarged. Endotracheal tube overlies the midline, 4.3 cm superior to the jerry . Right IJ central venous catheter distal tip terminates in the expected location of the proximal to mid SVC. No pneumothorax. Layering pleural effusions, left greater than right with bibasilar consolid ation. Pulmonary vascular congestion. Degenerative changes of the shoulders and spine. IMPRESSION: 1. Lines and tubes as above. 2. Cardiomegaly with pulmonary vascular congestion and possible asymmetric right-sided pulmonary gillian a. 3. Left greater than right layering pleural effusions with bibasilar consolidation. ACT 112: Negative or not required by law. The above report was generated using voice recognition software. It may contain grammatical, syntax o r spelling errors. Electronically signed by: Dalton Dueñas M.D. 04/02/2021 11:39 AM
--- NOTE | 2021-04-02 13:36 | History & Physical Report ---
Date of Service April 02, 2021 Assessment & Plan (1) Acute respiratory failure: (2) Respiratory acidosis: (3) Acute kidney injury superimposed on chronic kidney disease: (4) Hypotension: (5) Acute hyperkalemia: (6) Cardiomyopathy, dilated, nonischemic: (7) Diabetes mellitus, type II: Plan: Patient is 81-year-old female with PMH HTN, dyslipidemia, DM II, paroxysmal SVT, chronic diastolic heart failure, cardiomyopathy, CKD III, obesity presented to ER with complaint of shortness of breath and weakness. History is obtained from ER staff and patient's daughter secondary to patient being intubated. Spoke with patient's daughter who reports that patient lives at home alone. She uses a walker to ambulate. Daughter reports that she stops to see patient every Monday and talks to patient nightly on the phone. 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 Daughter does report patient has had bilateral lower extremity edema for several months. She reports redness to lower extremities for the past week. Daughter is unaware if patient had any other illness or symptoms. Patient manages her own medications and daughter is not sure of her meds. Daughter is unsure if patient has living will and reports that she will look through patient's paperwork, however currently she wants her to be a full code. Is reported that patient pushed her life alert button to [facility]. Is reported upon EMS arrival patient was found to be hypotensive with systolic blood pressure in the 60s and she was given 600 mL NSS bolus. Is reported her O2 sats were 60% on room air. Upon ER arrival patient tachycardic at 116, BP 69/50, 73% on room air. Patient given albuterol neb BiPAP applied. Patient was later intubated and O2 sat 97%. Had 2L NSS. Now on norepinephrine with BP 116/63. Potassium 6.4. Blood gas: pH: 7.19, PCO2 65, PO2: 99, HCO3: 25. Lactate: 2.6, 2.9. BUN: 54, Cr: 2.75. Negative COVID 19 PCR. UA: trace leuk esterase, 5-10 WBC, >30 epithelial patient was given calcium gluconate, insulin R 10 units, dextrose, albuterol neb, dextrose and Zosyn. Admit ICU, further treatment per quill machine tender Monitor BMP Continue Zosyn Blood cultures pending, Urine culture pending CT chest pending Echo pending DVT Prophylaxis Heparin SQ Full Code as per discussion with pt's daughter, Follows with Dr Awan for routine care Pt was seen and care coordinated with Wolfgang Nunez. See addendum History of Present Illness Chief Complaint: SOB Primary Care Provider: Lori Whittington MD Patient is 81-year-old female with PMH HTN, dyslipidemia, DM II, paroxysmal SVT, chronic diastolic heart failure, cardiomyopathy, CKD III, obesity presented to ER with complaint of shortness of breath and weakness. History is obtained from ER staff and patient's daughter secondary to patient being intubated. Spoke with patient's daughter who reports that patient lives at home alone. She uses a walker to ambulate. Daughter reports that she stops to see patient every Monday and talks to patient nightly on the phone. 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 Daughter does report patient has had bilateral lower extremity edema for several months. She reports redness to lower extremities for the past week. Daughter is unaware if patient had any other illness or symptoms. Patient manages her own medications and daughter is not sure of her meds. Daughter is unsure if patient has living will and reports that she will look through patient's paperwork, however currently she wants her to be a full code. Is reported that patient pushed her life alert button [facility]. Is reported upon EMS arrival patient was found to be hypotensive with systolic blood pressure in the 60s and she was given 600 mL NSS bolus. Is reported her O2 sats were 60% on room air. Upon ER arrival patient tachycardic at 116, BP 69/50, 73% on room air. Patient given albuterol neb BiPAP applied. Patient was later intubated and O2 sat 97%. Had 2L NSS. Now on norepinephrine with BP 116/63. Potassium 6.4. Blood gas: pH: 7.19, PCO2 65, PO2: 99, HCO3: 25. Lactate: 2.6, 2.9. BUN: 54, Cr: 2.75 patient was given calcium gluconate, insulin R 10 units, dextrose, albuterol neb, dextrose and Zosyn. Patient being admitted to ICU for further evaluation and treatment. History echo 03/2015: EF 55-60%, grade 1 diastolic dysfunction Allergies Allergy/AdvReac Type Severity Reaction Status Date / Time Cipro Allergy Mild RASH Verified 10/05/15 07:28 ciprofloxacin Allergy Mild RASH Verified 04/24/19 08:29 clindamycin Allergy Mild Unknown Verified 04/03/21 18:02 Home Medications Medication Instructions Recorded Confirmed Type aspirin 81 mg tablet,delayed 81 mg PO DAILY 04/12/19 04/02/21 History release (Enteric Coated Aspirin) carvedilol 12.5 mg tablet (Coreg) 12.5 mg PO BID 04/12/19 04/02/21 History loratadine 10 mg tablet (Claritin) 10 mg PO DAILY 04/12/19 04/02/21 History multivitamin 1 tab PO DAILY 04/12/19 04/02/21 History vitamin B complex (B 1 tab PO .3 x a wk tab 04/12/19 04/02/21 History Complex-Vitamin B12) atorvastatin 40 mg tablet (Lipitor) 40 mg PO HS 04/02/21 04/02/21 History hydrochlorothiazide 12.5 mg capsule 12.5 mg PO DAILY 04/02/21 04/02/21 History losartan 50 mg tablet (Cozaar) 50 mg PO DAILY 04/02/21 04/02/21 History metformin 500 mg tablet,extended 1,000 mg PO BIDM 04/02/21 04/02/21 History release 24 hr Past Med/Surg History Medical History (Updated 04/02/21 @ 16:19 by Charanjit Sue MD) B12 deficiency Cardiogenic shock Chronic kidney disease CKD (chronic kidney disease), stage III Diabetes H/O cardiomyopathy H/O gastric ulcer H/O malignant neoplasm of endometrium Hyperlipidemia Hypertension Osteoarthritis Stasis dermatitis SVT (supraventricular tachycardia) Surgical History H/O abdominal hysterectomy H/O tubal ligation Social History Smoking Status: Unknown if ever smoked Hx Alcohol Use: No Hx Substance Use: No Preferred Language: Lao Communication Ability: Effective Visual Impairment: Limited Hearing Ability: Normal Beliefs That Will Affect Care: None marital status: Current Living Situation: Alone current occupational status: retired Feels Safe at Home: Yes Assistive Devices: Oxygen - Continuous Review of Systems Review of Systems: Unobtainable due to endotracheal tube Physical Exam Physical Exam: General: +obese elderly female, +intubated Head: normocephalic, atraumatic Eyes: pupils approx 2mm, conjunctiva non-injected, anicteric ENT: normal inspection external ears, nose, mucous membranes appear dry Neck: supple, trachea midline Lungs: +intubated, +coarse breath sounds CV: tachycardia, rate 102, 2+ pretibial edema Abd: normal BS, soft, no movement or retraction to palpation of abdomen Ext: BLE edema, +erythema lower legs, +scaling skin and wounds lateral lower legs Neuro: +intubated, minimal movement of extremities with pain Skin: warm, dry, +erythema skin folds groin and under breasts Results & Data Results & Data ([facility]) Vital Signs (Past 12 Hours) Vital Signs Temp Pulse Pulse Resp BP Pulse Ox 04/02/21 12:55 99 H 116/63 97 04/02/21 12:50 97 H 121/92 96 04/02/21 12:46 97 H 113/81 97 04/02/21 12:40 88 124/82 97 04/02/21 12:37 88 120/72 98 04/02/21 12:30 79 89/60 L 96 04/02/21 12:27 91 H 80/55 L 97 04/02/21 12:20 94 H 98/59 L 97 04/02/21 12:16 100 H 92/54 L 96 04/02/21 12:10 85 107/70 96 04/02/21 12:06 98 H 101/59 L 96 04/02/21 12:01 78 115/80 97 04/02/21 11:56 106/53 L 96 04/02/21 11:51 130/55 L 96 04/02/21 11:46 130/68 96 04/02/21 11:41 155/76 H 96 04/02/21 11:38 148/87 H 97 04/02/21 11:34 89 24 97 04/02/21 11:30 149/90 H 96 04/02/21 11:27 164/61 H 97 04/02/21 11:21 80 149/69 H 96 04/02/21 11:15 89 94 04/02/21 11:10 62 111/83 96 04/02/21 11:06 63 108/77 95 04/02/21 11:01 81 106/63 92 04/02/21 10:56 70 99/61 L 94 04/02/21 10:52 70 20 94 04/02/21 10:48 113 H 97 04/02/21 10:40 114 H 97 04/02/21 10:31 116 H 21 64/34 L 89 L 04/02/21 10:26 117 H 23 61/45 L 90 04/02/21 10:00 27 H 71/55 L 04/02/21 09:58 116 H 116 H 22 96 04/02/21 09:54 117 H 35 H 62/49 L 93 04/02/21 09:45 94 04/02/21 09:37 117 H 42 H 69/50 L 94 04/02/21 09:30 91 04/02/21 09:29 36.5 C 116 H 31 H 69/50 L 73 L Laboratory Results Short CBC 04/02/21 Range/Units 09:53 WBC 13.99 H (4.8-10.8) K/uL Hgb 14.4 (12.0-16.0) g/dL Hct 45.4 (37-47) % Plt Count 251 (130-400) K/uL BMP 04/02/21 09:53 Sodium 133 L Potassium 6.4 H* Chloride 102 Carbon Dioxide 28 BUN 54 H Creatinine 2.75 H Glucose 183 H Calcium 9.0 Cardiac Enzymes 04/02/21 Range/Units 09:53 Troponin I 0.036 (0-0.045) ng/ml Liver Function 04/02/21 Range/Units 09:53 Total Bilirubin 0.5 (0.2-1) mg/dl AST 13 L (15-37) U/L ALT 26 (12-78) U/L Alkaline Phosphatase 97 (45-117) U/L Albumin 3.3 L (3.4-5.0) gm/dl Urine 04/02/21 Range/Units 10:12 Urine Color Dark Yellow Urine Appearance Cloudy A (Clear) Urine pH 5.0 (4.5-7.5) Ur Specific [place] 1.024 (1.000-1.030) Urine Protein 2+ H (Negative) Urine Glucose (UA) Negative (Negative) Diagnostic Findings Chest X-Ray 04/02/21 09:38 XR chest 1V portable CLINICAL HISTORY: Dyspnea COMPARISON STUDY: Chest radiograph April 14, 2015. FINDINGS: There is no pneumothorax. Moderate cardiomegaly is noted. There are small bilateral pleural effusions with bibasilar opacities. There is no evidence for pulmonary edema. IMPRESSION: 1. Small bilateral pleural effusions with bibasilar opacities which may reflect an infectious process or atelectasis. Radiographic follow up is recommended. 2. Moderate cardiomegaly. No evidence for overt pulmonary edema. ACT 112: Negative or not required by law. Electronically signed by: Ramon Dowling M.D. 04/02/2021 10:33 AM Chest X-Ray 04/02/21 11:06 XR chest 1V portable HISTORY: 81 years-old Female s/p intubation/central line acute respiratory failure COMPARISON: Chest radiograph of same day at 10:03 AM TECHNIQUE: Supine AP view of the chest FINDINGS: Cardiac silhouette is enlarged. Endotracheal tube overlies the midline, 4.3 cm superior to the jerry. Right IJ central venous catheter distal tip terminates in the expected location of the proximal to mid SVC. No pneumothorax. Layering pleural effusions, left greater than right with bibasilar consolidation. Pulmonary vascular congestion. Degenerative changes of the shoulders and spine. IMPRESSION: 1. Lines and tubes as above. 2. Cardiomegaly with pulmonary vascular congestion and possible asymmetric right-sided pulmonary edema. 3. Left greater than right layering pleural effusions with bibasilar consolidation. ACT 112: Negative or not required by law. The above report was generated using voice recognition software. It may contain grammatical, syntax or spelling errors. Electronically signed by: Dalton Dueñas M.D. 04/02/2021 11:39 AM ECG Rate (beats per minute): 117 Rhythm: sinus tachycardia Findings: + Q waves (Inferior) and + ST depression (Lateral) Supervising Physician Co-Signing Physician Notes Pt seen and examined by ny, care coordinated with Genoveva Rivera PA-C, pls refer to her note above for further detail. Pt is an 81 y/o female w/ hx of HTN, dyslipidemia, DM II, paroxysmal SVT, chronic diastolic heart failure, cardiomyopathy, CKD III, obesity who presented to ER via EMS with complaint of shortness of breath and weakness. Pt found hypotensive and hypoxic on EMS arrival. Received IVF prior to coming to the ED. In ED still tachycardic, hypotensive and hypoxic. Initially tried on BiPAP but then required intubation in ED. ABG showing respiratory acidosis. Started on vasopressors and empiric zosyn. ICU contacted by ED. On my exam pt is intubated, sedated. head is atraumatic, normocephalic, PERRL. Breath sounds somewhat course on vent. Heart sounds - tachycardic. Abdomen obese, soft, posit. bowel sounds. LE w/edema, erythema and some sloughing. Skin seems to be warm and well perfused at this time. Per daughter pt had LE edema for several weeks, daughter speaks with her mom over the phone regularly. No other significant hx provided. Pt was admitted to ICU for further management. Labs reviewed significant for hyperkalemia, elevated Cr, and elevated pro BNP. Blood and urine cultx pending. Continue empiric Zosyn for now. CT chest and Echo pending. Gray Nunez MD
[2021-04-02] MEDS ORDERED: CONSULT PHARMACY STA (14:17)
--- NOTE | 2021-04-02 15:16 | CT Scan Report ---
CT chest diagnostic wo con CLINICAL HISTORY: sob COMPARISON STUDY: No previous studies for comparison. CT DOSE: 814.22 mGy.cm TECHNIQUE: CT of the thorax was performed from the thoracic inlet to the lung bases. Images are revi ewed in the axial, sagittal, and coronal planes. IV contrast was not administered for this examinatio n. A dose lowering technique was utilized adhering to the principles of ALARA. FINDINGS: There is no axillary or internal mammary lymphadenopathy seen. Multiple small lymph nodes are seen wi thin supra clavicle region. Multiple mediastinal lymph nodes measuring less than 1 cm in short axis. Right-sided IJ central venous line is seen with tip terminating within distal aspect of superior vena cava. Few areas of gas collection is seen surrounding its course, could represent postsurgical calvo es if this line was placed recently. Also small amount of gas collection is seen within left brachioc ephalic trunk and branch of right internal mammary vein (4/123). Thyroid: Visualized portion of thyroid gland shows no evidence of focal lesions. There is mild diffus e soft tissue edema is seen within central lower neck region. Esophagus is normal. Thoracic aorta: Thoracic aorta is normal in caliber with scattered calcifications of its wall. Heart: Four-chamber cardiomegaly. Minimal pericardial effusion. Moderate coronary calcifications. Lungs and pleural spaces: Tracheobronchial tree is patent. This study is acquired during partial expiratory phase. Endotracheal tube is terminating within supra coronal trachea. Bilateral pleural effusion is seen, right more than left and associated with compressive atelectasis of bilateral lower lobes. Infiltrative process such as pneumonia is possible. Limited exam due to toan m hardening artifact. Upper abdomen: Limited evaluation of upper abdominal viscera shows mild ascites and mesenteric edema . Limited evaluation due to beam hardening artifact from overlying metallic object. Skeletal structures: Osteopenia. Multilevel degenerative changes of the spine. IMPRESSION: 1. Bilateral pleural effusion, right more than left associated with atelectasis of bilateral lower l obes. Pneumonia is possible. Slightly suboptimal exam due to lack of IV contrast. Follow-up evaluatio n after pleural effusion resolution is recommended for better evaluation of pulmonary parenchymal les ions. 2. Endotracheal tube and right-sided central venous catheter. Please see discussion above. 3. Four-chamber cardiomegaly. 4. Ascites. 5. The rest of findings as above. ACT 112: Negative or not required by law. The above report was generated using voice recognition software. It may contain grammatical, syntax o r spelling errors. Electronically signed by: Margaret Fong DO 04/02/2021 3:15 PM
[2021-04-02] MEDS ORDERED: MAX Conc 128mcg/mL; 32mg in 250mL IV SCH (15:45)
[2021-04-02] MEDS ORDERED: ICU PROTOCOL FOR HYPERGLYCEMIA PRN (15:53)
[2021-04-02 16:12] LABS: iSTAT Allen Test Pass; iSTAT Arterial Blood Gas HCO3 20 meg/L (19-24); iSTAT Arterial Blood Gas pCO2 40 mmHg (35-46); iSTAT Arterial Blood Gas pH 7.31 (7.35-7.45); iSTAT Arterial Blood Gas pO2 69 mmHg (80-95); iSTAT Carbon Dioxide 21 mmol/L (24-31); iSTAT FiO2 40 %; iSTAT Site R Radial
[2021-04-02] MEDS: fentaNYL DRIP 1,250 MCG/250 ML BAG IV SCH (16:13)
--- NOTE | 2021-04-02 16:25 | Critical Care Consultation ---
Date of Consultation April 02, 2021 Assessment & Plan (1) Cardiogenic shock: (2) Pulmonary hypertension: (3) Chronic venous insufficiency: (4) Acute renal failure: (5) Acute hyperkalemia: 81-year-old female with a past medical history of morbid obesity, dyslipidemia, diabetes mellitus type 2, paroxysmal SVT, chronic diastolic failure, chronic systolic heart failure and CKD stage III who presented to the hospital with hypotension and altered mental status. This patient was discussed on multidisciplinary rounds. I personally evaluated and examined this patient and I agree with the assessment and plan of [] aside for any additions/exceptions noted below: Neurologic: Currently intubated sedated with fentanyl. Continue to maintain RASS of -1. Pulmonary: Minimal vent support required. Continue lung protective ventilation strategy. Small bilateral effusions seen likely related to CHF. No obvious pneumonia seen Cardiovascular: [id number]-in-zbfl ultrasound demonstrates reduced LVEF. Highly suspect cardiogenic shock component. proBNP highly elevated. Levophed to help support LV function and RV function. Maintain mean arterial pressure above 65. Difficult to rule out septic shock component. Continue Zosyn. MRSA screen and procalcitonin ordered. Hold antihypertensives. Gastrointestinal: N.p.o. for now. OG tube to be placed. LFTs within normal limits. Renal: MAXINE seen on labs. Hyperkalemia treated in the ER. We will repeat a BMP. Monitor urine output closely. We will trial a dose of IV Lasix. She has chronically on losartan which we are holding. Infectious disease: Empirically started on Zosyn. MRSA screen pending. Blood cultures pending. Urinalysis with evidence of possible UTI. Hematologic: No anemia. Platelet count 251,000. INR within normal Endocrine: TSH pending. ICU hyperglycemia protocol ordered. Lines and tubes: Right IJ in place 04/02/2021. Frances in place. Peripheral IVs. VTE prophylaxis: Heparin 5000 units twice daily CODE STATUS: Full code. Family at bedside: None available at bedside due to the COVID-19 pandemic restrictions. Disposition: I have personally spent 36 minutes of critical care time in the direct management of this patient. This is a life/limb threatening event. This includes time spent evaluating patient, direct bedside care, chart review, placing orders, interpretation of diagnostic studies, discussion with consultants, patient, and family members, as well as other required patient management activities. This time is exclusive of all separately billable procedures, and teaching time and separate from and in addition to any other critical care service time. Thank you for allowing us to participate in the care of this patient. History of Present Illness Reason for Consultation: Shock and hypercapnic respiratory failure Attending Physician: Alexandro Nunez MD History of Present Illness History is unobtainable from the patient as she is currently intubated and sedated. History is obtained from chart review and discussion with the hospitalist. 81-year-old female who came into the emergency department today around 9 AM. She was found to be hypoxic with sats in her 60s and systolic blood pressures in her 60s. She received fluids in the emergency department with improvement. The patient apparently told her daughter and that she has had increasing swelling in her lower extremities for the last few months. Patient was ultimately intubated in the emergency department due to worsening mentation a shock type picture. Initial ABG demonstrated pH of 7.19 and PCO2 of 65. Lactate was elevated 2.6. Creatinine elevated 2.75. Calcium elevated as well. She received calcium gluconate, dextrose and D50. She is currently on Zosyn. She was admitted to the ICU for further management. Noncontrast chest CT completed today demonstrated bilateral small pleural effusions with right greater than left. Compressive atelectasis seen. Four- chamber cardiomegaly noted. I performed a nuclear ultrasound of the heart. LVEF appeared reduced. IVC was plump. Past medical history is significant for hypertension, dyslipidemia, diabetes mellitus type 2, paroxysmal SVT, chronic diastolic heart failure, CKD and obesity. Allergies Allergy/AdvReac Type Severity Reaction Status Date / Time Cipro Allergy Mild RASH Verified 10/05/15 07:28 ciprofloxacin Allergy Mild RASH Verified 04/24/19 08:29 clindamycin Allergy Mild Unverified 04/24/19 08:29 Home Medications Medication Instructions Recorded Confirmed Type aspirin 81 mg tablet,delayed 81 mg PO DAILY 04/12/19 04/02/21 History release (Enteric Coated Aspirin) carvedilol 12.5 mg tablet (Coreg) 12.5 mg PO BID 04/12/19 04/02/21 History loratadine 10 mg tablet (Claritin) 10 mg PO DAILY 04/12/19 04/02/21 History multivitamin 1 tab PO DAILY 04/12/19 04/02/21 History vitamin B complex (B 1 tab PO .3 x a wk tab 04/12/19 04/02/21 History Complex-Vitamin B12) atorvastatin 40 mg tablet (Lipitor) 40 mg PO HS 04/02/21 04/02/21 History hydrochlorothiazide 12.5 mg capsule 12.5 mg PO DAILY 04/02/21 04/02/21 History losartan 50 mg tablet (Cozaar) 50 mg PO DAILY 04/02/21 04/02/21 History metformin 500 mg tablet,extended 1,000 mg PO BIDM 04/02/21 04/02/21 History release 24 hr Patient History Medical History (Updated 04/02/21 @ 16:19 by Charanjit Sue MD) B12 deficiency Cardiogenic shock Chronic kidney disease CKD (chronic kidney disease), stage III Diabetes H/O cardiomyopathy H/O gastric ulcer H/O malignant neoplasm of endometrium Hyperlipidemia Hypertension Osteoarthritis Stasis dermatitis SVT (supraventricular tachycardia) Surgical History H/O abdominal hysterectomy H/O tubal ligation Social History Smoking Status: Unknown if ever smoked Hx Alcohol Use: No Hx Substance Use: No Preferred Language: Marshallese Communication Ability: Effective Visual Impairment: Limited Hearing Ability: Normal Beliefs That Will Affect Care: None marital status: Current Living Situation: Alone current occupational status: retired Feels Safe at Home: Yes Review of Systems Review of Systems: Unobtainable due to endotracheal tube Physical Exam Physical Exam: Constitutional: Morbidly obese appearing female who is currently intubated and sedated. Does not appear to be in any significant distress. Eyes: Pupils are equal round and reactive to light. Conjunctivae are normal. Anicteric sclera. Ears nose, mouth and throat: Endotracheally intubated. Neck: Trachea is midline. Visual inspection is normal. Respiratory: Coarse breath sounds on the ventilator. Diminished bibasilarly. Cardiovascular: 2-3+ pitting edema in the lower extremities. Mild systolic flow murmur. Regular rate and rhythm. Gastrointestinal: Normal bowel sounds, soft, nontender and nondistended. No hepatosplenomegaly noted. Musculoskeletal: Unable to fully assess that she is sedated. Skin: Venous stasis changes noted on her legs and feet. Neurologic: Unable to assess due to sedation. Psychiatric: Unable to assess due to sedation. Results & Data Results & Data ([facility]) Vital Signs (Past 12 Hours) Vital Signs Temp Pulse Pulse Resp BP Pulse Ox 04/02/21 15:12 92 H 24 96 04/02/21 14:16 98 H 104/68 98 04/02/21 14:11 103 H 119/57 L 97 04/02/21 14:06 104 H 122/99 98 04/02/21 14:00 100 H 122/66 98 04/02/21 13:55 74 125/55 L 97 04/02/21 13:50 104 H 130/65 98 04/02/21 13:47 100 H 129/78 97 04/02/21 13:41 104 H 131/62 97 04/02/21 13:37 103 H 126/65 93 04/02/21 13:33 108 H 120/69 94 04/02/21 13:25 110 H 92/74 L 90 04/02/21 13:22 99 H 127/64 97 04/02/21 13:16 87 135/60 97 04/02/21 13:10 79 123/72 96 04/02/21 13:06 93 H 105/75 96 04/02/21 13:01 98 H 106/46 L 96 04/02/21 12:55 99 H 116/63 97 04/02/21 12:50 97 H 121/92 96 04/02/21 12:46 97 H 113/81 97 04/02/21 12:40 88 124/82 97 04/02/21 12:37 88 120/72 98 04/02/21 12:30 79 89/60 L 96 04/02/21 12:27 91 H 80/55 L 97 04/02/21 12:20 94 H 98/59 L 97 04/02/21 12:16 100 H 92/54 L 96 04/02/21 12:10 85 107/70 96 04/02/21 12:06 98 H 101/59 L 96 04/02/21 12:01 78 115/80 97 04/02/21 11:56 106/53 L 96 04/02/21 11:51 130/55 L 96 04/02/21 11:46 130/68 96 04/02/21 11:41 155/76 H 96 04/02/21 11:38 148/87 H 97 04/02/21 11:34 89 24 97 04/02/21 11:30 149/90 H 96 04/02/21 11:27 164/61 H 97 04/02/21 11:21 80 149/69 H 96 04/02/21 11:15 89 94 04/02/21 11:10 62 111/83 96 04/02/21 11:06 63 108/77 95 04/02/21 11:01 81 106/63 92 04/02/21 10:56 70 99/61 L 94 04/02/21 10:52 70 20 94 04/02/21 10:48 113 H 97 04/02/21 10:40 114 H 97 04/02/21 10:31 116 H 21 64/34 L 89 L 04/02/21 10:26 117 H 23 61/45 L 90 04/02/21 10:00 27 H 71/55 L 04/02/21 09:58 116 H 116 H 22 96 04/02/21 09:54 117 H 35 H 62/49 L 93 04/02/21 09:45 94 04/02/21 09:37 117 H 42 H 69/50 L 94 04/02/21 09:30 91 04/02/21 09:29 97.7 F 116 H 31 H 69/50 L 73 L Vital signs, labs and imaging personally reviewed Coding Level of Care Code Critical Care 1st 30-74 mins Diagnoses Cardiogenic shock R57.0 Pulmonary hypertension I27.20 Chronic venous insufficiency I87.2 Acute renal failure N17.9 Acute hyperkalemia E87.5 Time Spent (min) 36
[2021-04-02 17:06] LABS: BUN Creatinine Ratio 20.2 (10-20); Calcium 8.4 mg/dl (8.5-10.1); Creatinine Clr Calc Pharmacy 17.4 ml/min; Est GFR (African American) 18.6 ml/min; Potassium 5.3 mmol/L (3.5-5.1)
[2021-04-02 17:11] LABS: Thyroid Stimulating Hormone 3.4 uIu/ml (0.300-4.500)
[2021-04-02] MEDS ORDERED: SEVERE STRESS LEVEL ONE (17:29)
[2021-04-02] MEDS ORDERED: INSULIN PROTOCOL GOAL RANGE ONE (17:29)
[2021-04-02 17:34] LABS: Phosphorus 5.6 mg/dl (2.5-4.9)
[2021-04-02] MEDS ORDERED: GLUCOSE 10 TABS/TUBE PO PRN (17:45)
[2021-04-02] MEDS ORDERED: GLUCOSE 40% GEL 15 GM TUBE PO PRN (17:45)
[2021-04-02] MEDS ORDERED: GLUCAGON FOR INJ 1 MG VIAL IM PRN (17:45)
[2021-04-02] MEDS ORDERED: CARBOHYDRATES FOR HYPOGLYCEMIA PO PRN (17:45)
[2021-04-02] MEDS: MAX Conc 128mcg/mL; 32mg in 250mL IV SCH (18:11)
[2021-04-02] MEDS ORDERED: FUROSEMIDE 40 MG/4 ML VIAL IV ONE (18:19)
[2021-04-02] MEDS ORDERED: FUROSEMIDE 40 MG in SYRINGE 0 ML IV ONE (18:25)
[2021-04-02] MEDS ORDERED: NovoLIN-R BOLUS FROM BAG IV ONE (19:00)
[2021-04-02] MEDS: INSULIN REGULAR 250 UNITS in SODIUM CHLORIDE 0.9% 247.5 ML IV SCH (19:33)
[2021-04-02] MEDS: HEPARIN SOD 5,000 UNIT/0.5 ML VIAL SQ SCH (19:34)
[2021-04-02] MEDS: PIPERACILLIN/TAZOBACTAM 4.5 GM in DEXTROSE 5% 100 ML IV SCH (19:34)
[2021-04-02] MEDS: INSULIN ASPART 100 UNITS/ML 3 ML PEN SC SCH (19:35)
[2021-04-02] MEDS ORDERED: HEPARIN SOD 5,000 UNIT/0.5 ML VIAL SQ SCH (22:00)
[2021-04-02] MEDS: DEXTROSE 50% 50 ML SYRINGE IV PRN (22:45)
[2021-04-02] MEDS ORDERED: PHARMACY GLYCEMIC MGMT CONSULT PRN (23:50)
[2021-04-03] MEDS ORDERED: STAT IV Infusion **Titration per Protocol STA ×5 (03:54→14:01)
[2021-04-03] MEDS ORDERED: ESMOLOL BOLUS FROM BAG IV ONE (03:54)
--- NOTE | 2021-04-03 03:58 | Communication Note ---
Date of Service: April 03, 2021 0445: Patient was noted to develop a narrow complex tachycardia at >150 bpm on the monitor. I presented immediately to bedside. Patient agitated and reaching for the ET tube. Verbal orders placed for EKG for interpretation prior to proceeding w/ rate control/cardioversion attempt. Patient w/ labile blood pressures on significant doses of Levophed currently. EKG demonstrated what appeared to be a sinus tachycardia in the 150s with shortened UT interval. Of note, the patient's rate was very consistent w/o fluctuation. Patient w/ previous a. flutter rhythm noted sporadically throughout the night. 2:1 conduction not ruled out completely. Pacer pads were applied in the event of need for emergent cardioversion. Code cart placed just outside the room. Unfortunately, the patient is with a poor cardiac history w/ cardiomyopathy and EF today of ~15%. She is currently requiring large amounts of vasopressors in the form of Levophed. Immediate goal was for rate control. After weighing options, I did place order for esmolol as this has a short half-life and allows us to hopefully slow heart rate versus break rhythm with a significantly shorter half-life than intravenous metoprolol. Ideally, given the patient's significant pressor requirements, consideration for addition of Amauri-Synephrine for its reflexive bradycardia was also considered, however unfortunately I am concerned that providing substantial alpha blockade to a patient with a significantly reduced EF will likely result in worsening cardiogenic shock. Initial bolus of 50 mg of IV esmolol was provided with ongoing drip and rate of 50 mcg/kg/min. Shortly after bolus, patient did reduce her rate significantly into the 100s to 1 teens. Rhythm was noted to be A. fib versus occasional 3-1 a flutter that appeared to be rate controlled at this point. Blood pressures were maintained well throughout, however this was with significant bouts of pressors. Orders for vasopressin were added as well. Lab did present to bedside to obtain morning labs. Additionally, arterial line was placed for closer hemodynamic monitoring, particularly in the patient with potential for worsening cardiovascular collapse. Please see separate note. Patient had another episode of heart rate in the 150s. Per my previous conversation with nursing staff, an additional 50 mg dose of IV metoprolol was administered and drip started. Again, this did reduce rate and blood pressure maintained as well. I was approached by nursing staff and informed that the patient had a lab potassium of 6.1. Creatinine continues to climb. Patient's urine output was minimal throughout the night. Orders were placed for a.m. ABG to be obtained prior to correction of potassium. ABG assessed by myself. Orders placed for insulin, dextrose, calcium chloride, and bicarb. Unfortunately, patient had return of narrow complex tachycardia with rates in the 150s again. Unfortunately, the patient is continuing to require a substantial amount of vasopressors. As the patient was noted to occasionally have episodes of A. fib/a flutter with some relative associated hypotension with esmolol, I did elect to place orders for amiodarone bolus followed by drip in an effort to have further sustained heart rate/rhythm. Shortly after completion of amiodarone bolus, patient was noted to revert back to a rate controlled atrial flutter. 0608: Reached out the patient daughter, Tanja Feldman ([phone]) regarding recent events. I did provide her updates regarding echocardiogram findings of EF less than 15% as well. We did have a lengthy discussion. She reports that she has POA documentation which include herself and her brother as decision- makers. Additionally, she has her mother is living will paperwork as well. She did read through the living well and it was documented to include that the mother would not wish to undergo CPR. Additionally, there was verbiage that was suggestive that the patient would not wish to be intubated either. Daughter is understanding and reports that paperwork was not in hand during decision and she is comfortable with the decision making that we have performed in the care of her mother to this point. She does state that she will discuss change in status with her brother and reviewed the documentation. Additionally, she reports that she will present a copy of living will and POA paperwork to the hospital today for review. At the end of discussion, she agrees that at this point, it would be best to change CODE STATUS to reflect living will which to this point would include no chest compressions. To this point, we will continue with current care as reflected in CODE STATUS change. CODE STATUS updated in the computer. Nursing staff provided update at bedside. I have personally spent 64 minutes of critical care time in the direct management of this patient. This is a life/limb threatening event. This includes time spent evaluating patient, direct bedside care, chart review, placing orders, interpretation of diagnostic studies, discussion with consultants, patient, and family members, as well as other required patient management activi ties. This time is exclusive of all separately billable procedures, and teaching time and separate from and in addition to any other critical care service time. Coding Level of Care Code Critical Care 1st 30-74 mins Time Spent (min) 64
[2021-04-03] MEDS ORDERED: ESMOLOL / NSS 2,500 MG/250 ML BAG IV SCH (04:00)
[2021-04-03] MEDS ORDERED: ACETAMINOPHEN 1,000 MG/100 ML VIAL IV PRN (04:04)
[2021-04-03] MEDS: VASOPRESSIN 20 UNITS in 0.9 % SODIUM CHLORIDE 100 ML IV SCH ×3 (04:16→20:49)
[2021-04-03 05:00] LABS: BUN Creatinine Ratio 19.5 (10-20); Calcium 8.7 mg/dl (8.5-10.1); Creatinine Clr Calc Pharmacy 15.6 ml/min; Est GFR (African American) 16.3 ml/min; Est GFR (Non-African American) 14.1 ml/min; Magnesium 1.8 mg/dl (1.8-2.4); Potassium 6.1 mmol/L (3.5-5.1)
[2021-04-03] MEDS ORDERED: CALCIUM CHLORIDE 10% 1,000 MG in SODIUM CHLORIDE 0.9% 50 ML IV STA (05:11)
[2021-04-03] MEDS ORDERED: INSULIN HUMAN REGULAR PER UNIT 6 UNITS in SYRINGE 5.94 ML IV STA (05:12)
[2021-04-03] MEDS ORDERED: SODIUM BICARB 8.4% INJ 50 MEQ/50 ML SYR IV STA (05:12)
[2021-04-03] MEDS ORDERED: FUROSEMIDE 40 MG in SYRINGE 0 ML IV ONE (05:15)
[2021-04-03] MEDS ORDERED: DEXTROSE 50% 50 ML SYRINGE IV ONE (05:15)
[2021-04-03] MEDS ORDERED: NOREPINEPHRINE/D5W 8 MG/508 ML IV ONE (05:16)
[2021-04-03 05:25] LABS: iSTAT Arterial Blood Gas HCO3 19 meg/L (19-24); iSTAT Arterial Blood Gas pCO2 33 mmHg (35-46); iSTAT Arterial Blood Gas pH 7.37 (7.35-7.45); iSTAT Arterial Blood Gas pO2 62 mmHg (80-95); iSTAT Carbon Dioxide 20 mmol/L (24-31); iSTAT FiO2 30 %; iSTAT Site Art Line
[2021-04-03] MEDS ORDERED: AMIODARONE 360MG / 200ML D5W IV ONE (05:51)
[2021-04-03] MEDS ORDERED: AMIODARONE IV BOLUS & DRIP IV STA (05:51)
[2021-04-03] MEDS ORDERED: 0.2 MICRON FILTER SET 1 EA IV ONE (05:51)
[2021-04-03] MEDS ORDERED: AMIODARONE 150MG / 100ML D5W IV ONE (05:52)
[2021-04-03] MEDS ORDERED: AMIODARONE / D5W 360 MG/200 ML BAG IV ONE (06:02)
[2021-04-03] MEDS ORDERED: AMIODARONE / D5W 150 MG/100 ML BAG IV STA (06:03)
[2021-04-03] MEDS: NOREPINEPHRINE/D5W 8 MG/508 ML BAG IV SCH ×3 (06:10→12:28)
[2021-04-03] MEDS: MAX Conc 128mcg/mL; 32mg in 250mL IV SCH ×3 (06:21→20:52)
--- NOTE | 2021-04-03 06:44 | Procedure Note ---
Procedure Note Date of Service April 03, 2021 Note Procedure: Arterial Line Placement Attending: Dr. Sue APC: Marko Cortes PA-C Indication: Hemodynamic monitoring Anesthesia: Lidocaine 1% Emergent Consent implied in the setting of clinical deterioration and need for close hemodynamic monitoring, ABG monitoring, frequent lab draws, etc. A time-out was completed verifying correct patient, procedure, site, positioning, and implant(s) or special equipment if applicable. Allens test was performed to ensure adequate perfusion. Patients RIGHT wrist was prepped and draped in the usual sterile fashion. Ultrasound guidance was used to aid needle placement. A 20g Arrow arterial line was introduced into the RIGHT Radial artery. Catheter was threaded, and the needle was removed with appropriate blood return. Good waveform was observed. The patient tolerated the procedure well. Confirmation of placement with ultrasound. Blood Loss: Minimal Complications: None Procedural Ultrasound Guidance: Procedure Date: 04/03/2021 Indication: Hemodynamic Monitoring, Frequent ABGs/Lab draws. Attending: Dr. Sue APC: Marko Cortes PA-C Artery Identified: YES Line confirmed in Artery with ultrasound: YES Complications: NONE Patient tolerated procedure: WELL Coding CPT Codes Tubes, Drains, and Vasc Access - Tubes, Drains, and Vasc Access: [id number] Place Catheter In Artery ([id number]) [facility] [place] Procedure Codes (Charges) Tubes, Drains, and Vasc Access Procedure 1: Tubes, Drains, and Vasc Access: [id number] Place Catheter In Artery
[2021-04-03 07:11] LABS: Eosinophils # (auto) 0.02 K/uL (0-0.5); Eosinophils % (auto) 0.1 %; Hematocrit (blood only) 42.8 % (37-47); Hemoglobin 14.5 g/dL (12.0-16.0); Immature Granulocytes # (auto) 0.02 K/uL (0.00-0.02); Immature Granulocytes % (auto) 0.1 %; Lymphocytes # (auto) 2.02 K/uL (1.2-3.4); Lymphocytes % (auto) 14.1 %; Mean Corpuscular Hemoglobin 31.3 pg (25-34); Mean Corpuscular Hgb Conc 33.9 g/dL (32-36); Mean Corpuscular Volume 92.2 fL (80-100); Mean Platelet Volume 11.5 fL (7.4-10.4); Monocytes # (auto) 1.42 K/uL (0.11-0.59); Monocytes % (auto) 9.9 %; Neutrophils # (auto) 10.85 K/uL (1.4-6.5); Neutrophils % (auto) 75.8 %; Nucleated RBC # (auto) 0.07 K/uL (0-0); Nucleated RBC % (auto) 0.5 %; Platelet Count 234 K/uL (130-400); RDW Standard Deviation 52.5 fL (36.4-46.3); Red Blood Count 4.64 M/uL (4.2-5.4); White Blood Count 14.33 K/uL (4.8-10.8)
[2021-04-03] MEDS: DOBUTamine / D5W 500 MG/250 ML BAG IV SCH (07:22)
--- NOTE | 2021-04-03 07:38 | XRay Report ---
XR chest 1V portable CLINICAL HISTORY: f/u COMPARISON STUDY: Chest radiograph and chest CT April 02, 2021. FINDINGS: Tip of endotracheal tube is 4 cm above the jerry. Tip of right internal jugular central li ne projects over the proximal SVC. Tip of nasogastric tube is below the lower aspect of this image bu t at least within the proximal stomach. Small to moderate left pleural effusion has increased in size . Left basilar opacity has increased. There is a small right pleural effusion. There is pulmonary vas cular congestion. Cardiomegaly is noted. Left lung volume loss is again noted. IMPRESSION: 1. Satisfactory positioning of lines and tubes. 2. Increase in left lower lobe with volume loss. This may reflect atelectasis or consolidation. Smal l to moderate left pleural effusion. 3. Small right pleural effusion. 4. Cardiomegaly with pulmonary vascular congestion. ACT 112: Negative or not required by law. Electronically signed by: Ramon Dowling M.D. 04/03/2021 7:37 AM
[2021-04-03] MEDS: INSULIN ASPART 100 UNITS/ML 3 ML PEN SC SCH ×4 (07:43→20:51)
[2021-04-03] MEDS ORDERED: Nursing to Pharmacy Communication SCH ×2 (07:45→11:15)
[2021-04-03 07:53] LABS: iSTAT Art Bld Gas pCO2 Correct 36 mmHg (35-46); iSTAT Art Bld Gas pH Corrected 7.405 (7.35-7.45); iSTAT Arterial Blood Gas HCO3 23 meg/L (19-24); iSTAT Arterial Blood Gas pCO2 35 mmHg (35-46); iSTAT Arterial Blood Gas pH 7.41 (7.35-7.45); iSTAT Arterial Blood Gas pO2 74 mmHg (80-95); iSTAT Arterial Blood Gas pO2 C 78; iSTAT Carbon Dioxide 24 mmol/L (24-31); iSTAT FiO2 100 %; iSTAT Hematocrit 43 % (37-47); iSTAT Hemoglobin 14.6 g/dl (12.0-16.0); iSTAT Potassium 5.2 mmol/L (3.3-5.0); iSTAT Site Art Line; iSTAT Sodium 131 mmol/L (135-144)
[2021-04-03 08:02] LABS: Estimated Average Glucose 157 mg/dl; Hemoglobin A1C 7.1 % (4.5-5.6)
[2021-04-03] MEDS: PIPERACILLIN/TAZOBACTAM 4.5 GM in DEXTROSE 5% 100 ML IV SCH ×2 (08:07→20:50)
[2021-04-03] MEDS: HEPARIN SOD 5,000 UNIT/0.5 ML VIAL SQ SCH ×2 (08:08→20:51)
[2021-04-03] MEDS ORDERED: FAMOTIDINE 20 MG in SYRINGE 3 ML IV SCH (09:00)
[2021-04-03 10:17] LABS: Phosphorus 3.8 mg/dl (2.5-4.9)
--- NOTE | 2021-04-03 10:48 | Pharmacy Report ---
Pharmacy Glycemic Short Note 2 - Date of Service April 03, 2021 - Glycemic Short BSG Results (Last 24 hours): 04/02/21 04/02/21 04/02/21 16:03 21:07 22:38 Glucose 331 H* POC Glucose POC Glucose (other) 110 H 78 04/02/21 04/02/21 04/03/21 23:05 23:34 00:34 Glucose POC Glucose 163 H POC Glucose (other) 253 H 162 H 04/03/21 04/03/21 04/03/21 02:04 03:07 04:28 Glucose 138 H POC Glucose 112 H POC Glucose (other) 106 H 04/03/21 07:37 Glucose POC Glucose POC Glucose (other) 181 H OUTPATIENT ANTIDIABETIC REGIMEN: * Metformin 1,000mg PO BIDM * A1c = 7.1% on 04/03/21 ASSESSMENT: * 81yo T2Dm female admitted for acute respiratory failure. * Pharmacy glycemic consult per auto hyperglycemia protocol. * Pt initiated on IV insulin infusion per protocol. * Prognosis is poor- likely terminal extubation today vs tomorrow. Will continue on IV insulin infusion. No transition needed to SQ basal bolus at this time. PLAN FOR INPATIENT GLYCEMIC CONTROL: * Hold outpatient oral diabetes medications * IV insulin infusion per protocol
[2021-04-03] MEDS: AMIODARONE / D5W 360 MG/200 ML BAG IV SCH ×2 (11:34→23:39)
[2021-04-03] MEDS ORDERED: SODIUM POLYSTYRENE SULFONATE 15G/60ML SUSP PO STA (13:02)
--- NOTE | 2021-04-03 13:05 | Critical Care Progress Note ---
Date of Service April 03, 2021 Assessment & Plan (1) Cardiogenic shock: (2) Pulmonary hypertension: (3) Chronic venous insufficiency: (4) Acute renal failure: (5) Acute hyperkalemia: Plan: 81-year-old female with a past medical history of morbid obesity, dyslipidemia, diabetes mellitus type 2, paroxysmal SVT, chronic diastolic failure, chronic systolic heart failure and CKD stage III who presented to the hospital with hypotension and altered mental status. Neurologic: Currently intubated sedated with fentanyl. Continue to maintain RASS of -1. Pulmonary: -- VDRF Likely secondary to CHF exacerbation with cardiogenic shock Continue with ventilatory support Keep RASS -1 Cardiovascular: --Cardiogenic shock Decreased EF Continue vasopressors along with inotropic support Keep MAP greater than 60-65 --Paroxysmal SVT On amiodarone for rate control Gastrointestinal: N.p.o. Renal: -- MAXINE on CKD stage III Monitor BUN/creatinine Avoid nephrotoxic medications Strict ins and outs Infectious disease: Nasal MRSA negative COVID-19 PCR negative Urine showed trace leukocyte esterase, negative bacteria Continue with empiric Zosyn for the time being Hematologic: Monitor H&H Endocrine: ICU hyperglycemia protocol ordered. TSH within normal limit --Prophylaxis VTE: Heparin GI: Pepcid Lines: Right IJ in place 04/02/2021, right radial, Frances in place. Peripheral IVs. Diet: N.p.o. Plan: In/out: +4.5 L, urine output 75 mL T-max 37.9 AB.4/35/74 Patient was hyperkalemic today. [id number] potassium was 5.1 later on Kayexalate 30 g given. Follow-up repeat BMP Patient is on insulin drip as well to help with potassium. Will give a dose of Lasix 80 mg to see if we can diurese her. Patient's daughter was at bedside who is also POA. Current patient status as well as prognosis was explained to the patient's daughter in detail. She understands and agrees that there is no improvement in patient's condition to go towards comfort measures Patient did not want dialysis or ventilator support in her will. Overall prognosis is guarded I have personally spent 41 minutes of critical care time in the direct management of this patient. This is a life/limb threatening event. This includes time spent evaluating patient, direct bedside care, chart review, placing orders, interpretation of diagnostic studies, discussion with consultants, patient, and family members, as well as other required patient management activities. This time is exclusive of all separately billable procedures, and teaching time and separate from and in addition to any other critical care service time. Thank you for allowing us to participate in the care of this patient. Admission and Anticipated Discharge Date Admission Date: April 02, 2021 Subjective Patient seen and examined at bedside. Overnight patient had episodes of tachycardia with pauses. She was started on actually esmolol drip. Her blood pressure went lower so it was changed to amiodarone drip. In the time of examination patient was on amiodarone drip, fentanyl 50, Levophed 0.58 vasopressin 0.04 and dobutamine 2.5 MAP of 75 Patient's urine output has gone down. Review of Systems Review of Systems: Unobtainable due to endotracheal tube Physical Exam Physical Exam: Constitutional: No acute distress HEENT: EOMI, PERRLA Respiratory system: Decreased air entry bilaterally, no wheeze, rhonchi, positive crackles bilateral lower lobes CVS: S1-S2 positive, no murmurs or gallops Abdomen: Soft, nontender, nondistended, positive bowel sounds x4, obese Extremities: +2 pulses bilaterally radialis/ dorsalis pedis, no cyanosis, +3 pitting edema bilateral lower extremity Neuro: RASS -1, positive gag, positive corneal, breathing over the vent Psych: Unable to assess G/U: Positive Frances Skin: no rashes, warm and dry Lymphatic: no cervical or axillary lymphadenopathy Results & Data Results & Data ([facility]) Vital Signs (Past 12 Hours) Vital Signs Temp Pulse Resp BP BP Pulse Ox 04/03/21 11:19 72 18 94 04/03/21 10:58 37.9 C H 73 101/62 93 04/03/21 10:43 37.9 C H 72 85 L 04/03/21 10:40 97/52 L 04/03/21 09:57 37.9 C H 76 108/69 93 04/03/21 09:30 18 04/03/21 08:57 37.8 C H 72 120/71 92 04/03/21 08:00 75 04/03/21 07:57 37.7 C H 74 115/81 86 L 04/03/21 07:32 24 04/03/21 07:27 37.6 C H 80 96 04/03/21 07:17 73 24 90 04/03/21 07:12 37.6 C H 74 78/49 L 90 04/03/21 06:57 37.6 C H 74 86/46 L 83 L 04/03/21 06:05 37.9 C H 111 H 85/53 L 93 04/03/21 05:30 37.8 C H 90 111/82 04/03/21 05:10 94 H 24 94 04/03/21 05:08 37.9 C H 99 H 94/51 L 04/03/21 04:34 37.9 C H 94 H 103/67 94 04/03/21 04:01 37.8 C H 151 H 100/81 93 04/03/21 03:36 37.7 C H 94 H 119/79 92 04/03/21 03:06 37.6 C H 80 114/61 92 04/03/21 02:36 37.5 C 78 95/68 L 94 04/03/21 02:06 37.5 C 79 105/63 94 04/03/21 01:36 37.4 C 79 96/65 L 93 04/03/21 01:25 78 24 94 04/03/21 01:06 37.3 C 78 107/64 94 04/03/21 04:28 04/03/21 04:28 Coding Level of Care Code Critical Care 1st 30-74 mins Diagnoses Cardiogenic shock R57.0 Pulmonary hypertension I27.20 Chronic venous insufficiency I87.2 Acute renal failure N17.9 Acute hyperkalemia E87.5 Time Spent (min) 41
[2021-04-03] MEDS ORDERED: FUROSEMIDE 80 MG in SYRINGE 0 ML IV ONE ×2 (13:15→23:30)
[2021-04-03] MEDS ORDERED: SODIUM POLYSTYRENE SULFONATE 15G/60ML SUSP PO ONE (13:15)
[2021-04-03] MEDS ORDERED: INSULIN PROTOCOL GOAL RANGE ONE (14:01)
--- NOTE | 2021-04-03 14:22 | Hospitalist Progress Note ---
Date of Service April 03, 2021 Assessment & Plan (1) Acute respiratory failure: (2) Respiratory acidosis: (3) Acute kidney injury superimposed on chronic kidney disease: (4) Hypotension: (5) Acute hyperkalemia: (6) Cardiomyopathy, dilated, nonischemic: (7) Diabetes mellitus, type II: Plan: Patient is an 81 yr female with PMH HTN, dyslipidemia, DM II, paroxysmal SVT, chronic diastolic heart failure, cardiomyopathy, CKD III, obesity presented to ER with complaint of shortness of breath and weakness. Ventilatory dependent respiratory failure Likely secondary to CHF exacerbation Cardiogenic shock ? Pneumonia -CT Chest:Bilateral pleural effusion, right more than left associated with atelectasis of bilateral lower lobes. Pneumonia is possible. Slightly suboptimal exam due to lack of IV contrast. Follow-up evaluation after pleural effusion resolution is recommended for better evaluation of pulmonary parenchymal lesions. Ascites -Negative COVID Screen -Normal Procalcitonin -ECHO: EF less than 15%. Abnormal septal wall motion consistent with RV pressure/volume overload, severe global hypokinesis. Pulmonary hypertension PASP 50 mmHg -Blood cultures negative to date -Empirically on Zosyn -Continue vent support -Appreciate critical care input -Monitor volume status, I/Os, daily weight -Poor Prognosis Paroxysmal SVT on Amiodarone Rate controlled currently Hyperkalemia On IV insulin Received Lasix Also received Kayexalate Monitor electrolytes Also received Calcium chloride Hyponatremia Likely due to volume overload Monitor Acute kidney injury Likely due to cardiogenic shock Avoid nephrotoxic agents as able Monitor renal function Patient doesn't want dialysis as per Will DVT Px Heparin SQ Code Status Conditional Code Admission and Anticipated Discharge Date Admission Date: April 02, 2021 Subjective Patient is seen and Examined at bedside Sedated and Intubated On Pressors Discussed with patient's daughter at bedside Hyperkalemia noted Review of Systems Review of Systems: Unobtainable due to endotracheal tube Physical Exam Physical Exam: Physical Exam: Vitals signs as noted above General Appearance:Morbidly Obese, no apparent distress, +Sedated and Intubated Head: normocephalic, Atraumatic Eyes: normal inspection Neck: supple, Trachea midline Respiratory/Chest: Normal breath sounds, Basal Crackles Cardiovascular: S1, S2, No murmur Abdomen/GI:Soft, Non tender, Bowel sounds present Extremities/Musculoskeletal:normal inspection, 2+ B/L LE edema Neurologic/Psych:Sedated and Intubated Skin: normal color, warm Results & Data Results & Data ([facility]) Vital Signs (Past 12 Hours) Vital Signs Temp Pulse Resp BP BP Pulse Ox 04/03/21 13:19 132/51 L 04/03/21 11:19 72 18 94 04/03/21 10:58 37.9 C H 73 101/62 93 04/03/21 10:43 37.9 C H 72 85 L 04/03/21 10:40 97/52 L 04/03/21 09:57 37.9 C H 76 108/69 93 04/03/21 09:30 18 04/03/21 08:57 37.8 C H 72 120/71 92 04/03/21 08:00 75 04/03/21 07:57 37.7 C H 74 115/81 86 L 04/03/21 07:32 24 04/03/21 07:27 37.6 C H 80 96 04/03/21 07:17 73 24 90 04/03/21 07:12 37.6 C H 74 78/49 L 90 04/03/21 06:57 37.6 C H 74 86/46 L 83 L 04/03/21 06:05 37.9 C H 111 H 85/53 L 93 04/03/21 05:30 37.8 C H 90 111/82 04/03/21 05:10 94 H 24 94 04/03/21 05:08 37.9 C H 99 H 94/51 L 04/03/21 04:34 37.9 C H 94 H 103/67 94 04/03/21 04:01 37.8 C H 151 H 100/81 93 04/03/21 03:36 37.7 C H 94 H 119/79 92 04/03/21 03:06 37.6 C H 80 114/61 92 04/03/21 02:36 37.5 C 78 95/68 L 94 Laboratory Results Short CBC 04/03/21 Range/Units 04:28 WBC 14.33 H (4.8-10.8) K/uL Hgb 14.5 (12.0-16.0) g/dL Hct 42.8 (37-47) % Plt Count 234 (130-400) K/uL BMP 09/17/21 09/18/21 16:03 04:28 Sodium 129 L 130 L Potassium 5.3 H D 6.1 H* D Chloride 97 L 99 Carbon Dioxide 23 25 BUN 54 H 58 H Creatinine 2.68 H 2.98 H D Glucose 331 H* 138 H Calcium 8.4 L 8.7
[2021-04-03 15:29] LABS: BUN Creatinine Ratio 18.5 (10-20); Calcium 8.5 mg/dl (8.5-10.1); Creatinine Clr Calc Pharmacy 14.8 ml/min; Est GFR (African American) 15.3 ml/min; Est GFR (Non-African American) 13.2 ml/min; Potassium 5.5 mmol/L (3.5-5.1)
[2021-04-03] MEDS: DEXTROSE 50% 50 ML SYRINGE IV PRN (17:14)
[2021-04-03] MEDS: INSULIN REGULAR 250 UNITS in SODIUM CHLORIDE 0.9% 247.5 ML IV SCH (20:50)
[2021-04-03] MEDS: fentaNYL DRIP 1,250 MCG/250 ML BAG IV SCH (20:52)
[2021-04-04] MEDS: DOBUTamine / D5W 500 MG/250 ML BAG IV SCH (01:07)
[2021-04-04] MEDS: fentaNYL DRIP 1,250 MCG/250 ML BAG IV SCH (03:38)
[2021-04-04 05:00] LABS: Hematocrit (blood only) 43.2 % (37-47); Hemoglobin 14.5 g/dL (12.0-16.0); Mean Corpuscular Hemoglobin 31.4 pg (25-34); Mean Corpuscular Hgb Conc 33.6 g/dL (32-36); Mean Corpuscular Volume 93.5 fL (80-100); Mean Platelet Volume 10.9 fL (7.4-10.4); Nucleated RBC # (auto) 0.02 K/uL (0-0); Nucleated RBC % (auto) 0.1 %; Platelet Count 206 K/uL (130-400); RDW Coefficient of Variation 16.2 % (11.5-14.5); RDW Standard Deviation 54.8 fL (36.4-46.3); Red Blood Count 4.62 M/uL (4.2-5.4); White Blood Count 17.45 K/uL (4.8-10.8)
[2021-04-04] MEDS: VASOPRESSIN 20 UNITS in 0.9 % SODIUM CHLORIDE 100 ML IV SCH (05:00)
[2021-04-04 05:26] LABS: Alanine Aminotransferase 24 U/L (12-78); Albumin Level 2.2 gm/dl (3.4-5.0); Aspartate Aminotransferase 18 U/L (15-37); BUN Creatinine Ratio 17.5 (10-20); Bilirubin Direct 0.3 mg/dl (0-0.2); Blood Urea Nitrogen 62 mg/dl (7-18); Carbon Dioxide 24 mmol/L (21-32); Chloride 96 mmol/L (98-107); Creatinine Clr Calc Pharmacy 13.1 ml/min; Est GFR (African American) 13.2 ml/min; Est GFR (Non-African American) 11.4 ml/min; Glucose 124 mg/dl (70-99); Magnesium 1.6 mg/dl (1.8-2.4); Potassium 5.7 mmol/L (3.5-5.1); Sodium 129 mmol/L (136-145)
[2021-04-04 05:52] LABS: Alkaline Phosphatase 81 U/L (45-117); Bilirubin,Total 0.4 mg/dl (0.2-1); NT Pro B Type Natriuretic Pept > 35000 pg/ml (0-1800); Phosphorus 5.5 mg/dl (2.5-4.9); Total Protein 5.4 gm/dl (6.4-8.2); Troponin I 0.935 ng/ml (0-0.045)
[2021-04-04] MEDS: MAX Conc 128mcg/mL; 32mg in 250mL IV SCH (06:04)
[2021-04-04 06:22] LABS: iSTAT Allen Test Pass; iSTAT Art Bld Gas pCO2 Correct 55 mmHg (35-46); iSTAT Art Bld Gas pH Corrected 7.231 (7.35-7.45); iSTAT Arterial Blood Gas HCO3 23 meg/L (19-24); iSTAT Arterial Blood Gas pCO2 50 mmHg (35-46); iSTAT Arterial Blood Gas pH 7.26 (7.35-7.45); iSTAT Arterial Blood Gas pO2 85 mmHg (80-95); iSTAT Arterial Blood Gas pO2 C 97; iSTAT Carbon Dioxide 24 mmol/L (24-31); iSTAT FiO2 100 %; iSTAT Hematocrit 47 % (37-47); iSTAT Potassium 5.6 mmol/L (3.3-5.0); iSTAT Site L Radial; iSTAT Sodium 127 mmol/L (135-144)
--- NOTE | 2021-04-04 07:11 | XRay Report ---
XR chest 1V portable CLINICAL HISTORY: f/u COMPARISON STUDY: Chest CT April 02, 2021. Chest radiograph April 03, 2021. FINDINGS: Tip of endotracheal tube is approximately 4.9 cm above the jerry. Right internal jugular c entral line is in place. Tip of nasogastric tube is at least within the proximal stomach. Left lung v olume loss and airspace opacity have increased since prior exam. Leftward mediastinal shift is noted. There are small to moderate bilateral pleural effusions. There is pulmonary vascular congestion with possible mild pulmonary edema. No pneumothorax. Cardiomegaly is again noted. IMPRESSION: 1. Increase in extensive left lung airspace opacity with volume loss. This favors increasing left mauricio g atelectasis. Discussed with Marko Cortes at time of dictation. 2. Small to moderate bilateral pleural effusions. 3. Cardiomegaly. Pulmonary vascular congestion with possible mild pulmonary edema. ACT 112: Negative or not required by law. Electronically signed by: Ramon Dowling M.D. 04/04/2021 7:09 AM
--- NOTE | 2021-04-04 08:14 | Critical Care Progress Note ---
Date of Service April 04, 2021 Assessment & Plan (1) Cardiogenic shock: (2) Pulmonary hypertension: (3) Chronic venous insufficiency: (4) Acute renal failure: (5) Acute hyperkalemia: Plan: 81-year-old female with a past medical history of morbid obesity, dyslipidemia, diabetes mellitus type 2, paroxysmal SVT, chronic diastolic failure, chronic systolic heart failure and CKD stage III who presented to the hospital with hypotension and altered mental status. Neurologic: Currently intubated sedated with fentanyl. Continue to maintain RASS of -1. Pulmonary: -- VDRF Likely secondary to CHF exacerbation with cardiogenic shock Continue with ventilatory support Keep RASS -1 Cardiovascular: --Cardiogenic shock Decreased EF Continue vasopressors along with inotropic support Keep MAP greater than 60-65 --Paroxysmal SVT On amiodarone for rate control Gastrointestinal: N.p.o. Renal: -- MAXINE on CKD stage III Monitor BUN/creatinine Avoid nephrotoxic medications Strict ins and outs --Hyperkalemia and hyperphosphatemia Likely from MAXINE Infectious disease: Nasal MRSA negative COVID-19 PCR negative Urine showed trace leukocyte esterase, negative bacteria Continue with empiric Zosyn for the time being Hematologic: Monitor H&H Endocrine: ICU hyperglycemia protocol ordered. TSH within normal limit --Prophylaxis VTE: Heparin GI: Pepcid Lines: Right IJ in place 04/02/2021, right radial, Frances in place. Peripheral IVs. Diet: N.p.o. Plan: In/out: + 2.7 L, urine output 359 T-max 38 Patient is still on high doses of vasopressors Levophed as well as vasopressin. She is also on dobutamine map is still in the 60s Patient's creatinine is worsening with very little urine after high dose of Lasix Chest x-ray from today does show left lower lobe atelectasis with mediastinal shift to the left. Would not do any intervention given patient was helped towards comfort measures. Patient's current condition and multiorgan failure leading to poor prognosis discussed with patient's daughter yesterday evening and plan is to go towards comfort measures. Once the family will be here we will terminally extubate the patient. I have personally spent 35 minutes of critical care time in the direct management of this patient. This is a life/limb threatening event. This includes time spent evaluating patient, direct bedside care, chart review, placing orders, interpretation of diagnostic studies, discussion with consultants, patient, and family members, as well as other required patient management activities. This time is exclusive of all separately billable procedures, and teaching time and separate from and in addition to any other critical care service time. Thank you for allowing us to participate in the care of this patient. Admission and Anticipated Discharge Date Admission Date: April 02, 2021 Subjective Patient seen and examined at bedside. Acute distress Patient is on amiodarone, Levophed, vasopressin Patient 38, patient saturation has been in the lower side given the patient. Heart rate occasionally creeps up to mid 130s most likely from PATs Review of Systems Review of Systems: Unobtainable due to endotracheal tube Physical Exam Physical Exam: Constitutional: No acute distress HEENT: EOMI, PERRLA Respiratory system: Decreased air entry bilaterally, no wheeze, rhonchi, positi ve crackles bilateral lower lobes CVS: S1-S2 positive, no murmurs or gallops Abdomen: Soft, nontender, nondistended, positive bowel sounds x4, obese Extremities: +2 pulses bilaterally radialis/ dorsalis pedis, no cyanosis, +3 pitting edema bilateral lower extremity Neuro: RASS -1, positive gag, positive corneal, breathing over the vent Psych: Unable to assess G/U: Positive Frances Skin: no rashes, warm and dry Lymphatic: no cervical or axillary lymphadenopathy Results & Data Results & Data ([facility]) Vital Signs (Past 12 Hours) Vital Signs Pulse Resp Pulse Ox 04/04/21 07:21 129 H 20 81 L 04/04/21 03:40 135 H 20 88 L 04/03/21 23:05 133 H 17 92 04/04/21 04:48 04/04/21 04:48 Coding Level of Care Code Critical Care 1st 30-74 mins Diagnoses Cardiogenic shock R57.0 Pulmonary hypertension I27.20 Chronic venous insufficiency I87.2 Acute renal failure N17.9 Acute hyperkalemia E87.5 Time Spent (min) 35
[2021-04-04 09:38] VITALS: BP 82/45; PULSE 114; TEMP 102.9; O2SAT 77
[2021-04-04] MEDS ORDERED: ETOMIDATE 2 MG/ML 20 ML VIAL IV ONE (09:44)
--- NOTE | 2021-04-04 12:16 | Discharge Summary ---
Date of Service April 04, 2021 Admission HPI Per Admitting Provider Patient is 81-year-old female with PMH HTN, dyslipidemia, DM II, paroxysmal SVT, chronic diastolic heart failure, cardiomyopathy, CKD III, obesity presented to ER with complaint of shortness of breath and weakness. History is obtained from ER staff and patient's daughter secondary to patient being intubated. Spoke with patient's daughter who reports that patient lives at home alone. She uses a walker to ambulate. Daughter reports that she stops to see patient every Monday and talks to patient nightly on the phone. 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 Daughter does report patient has had bilateral lower extremity edema for several months. She reports redness to lower extremities for the past week. Daughter is unaware if patient had any other illness or symptoms. Patient manages her own medications and daughter is not sure of her meds. Daughter is unsure if patient has living will and reports that she will look through patient's paperwork, however currently she wants her to be a full code. Is reported that patient pushed her life alert button to [facility]. Is reported upon EMS arrival patient was found to be hypotensive with systolic blood pressure in the 60s and she was given 600 mL NSS bolus. Is reported her O2 sats were 60% on room air. Upon ER arrival patient tachycardic at 116, BP 69/50, 73% on room air. Patient given albuterol neb BiPAP applied. Patient was later intubated and O2 sat 97%. Had 2L NSS. Now on norepinephrine with BP 116/63. Potassium 6.4. Blood gas: pH: 7.19, PCO2 65, PO2: 99, HCO3: 25. Lactate: 2.6, 2.9. BUN: 54, Cr: 2.75 patient was given calcium gluconate, insulin R 10 units, dextrose, albuterol neb, dextrose and Zosyn. Patient being admitted to ICU for further evaluation and treatment. History echo 03/2015: EF 55-60%, grade 1 diastolic dysfunction Admission Exam Per Admitting Provider Physical Exam Physical Exam: General: +obese elderly female, +intubated Head: normocephalic, atraumatic Eyes: pupils approx 2mm, conjunctiva non-injected, anicteric ENT: normal inspection external ears, nose, mucous membranes appear dry Neck: supple, trachea midline Lungs: +intubated, +coarse breath sounds CV: tachycardia, rate 102, 2+ pretibial edema Abd: normal BS, soft, no movement or retraction to palpation of abdomen Ext: BLE edema, +erythema lower legs, +scaling skin and wounds lateral lower legs Neuro: +intubated, minimal movement of extremities with pain Skin: warm, dry, +erythema skin folds groin and under breasts Principal Diagnosis Ventilatory dependent respiratory failure Likely secondary to CHF exacerbation Cardiogenic shock Paroxysmal SVT Hyperkalemia Hyponatremia Acute kidney injury Discharge Data Allergies Allergy/AdvReac Type Severity Reaction Status Date / Time Cipro Allergy Mild RASH Verified 10/05/15 07:28 ciprofloxacin Allergy Mild RASH Verified 04/24/19 08:29 clindamycin Allergy Mild Unknown Verified 04/03/21 18:02 Consultations 04/02/21 13:04 ED Decision to Admit Stat 04/02/21 15:53 Consult Mail Distributor Routine Ordered Studies 04/02/21 11:28 CT chest diagnostic wo con Stat Hospital Course (1) Acute respiratory failure: (2) Respiratory acidosis: (3) Acute kidney injury superimposed on chronic kidney disease: (4) Hypotension: (5) Acute hyperkalemia: (6) Cardiomyopathy, dilated, nonischemic: (7) Diabetes mellitus, type II: Patient is an 81 yr female with PMH HTN, dyslipidemia, DM II, paroxysmal SVT, chronic diastolic heart failure, cardiomyopathy, CKD III, obesity presented to ER with complaint of shortness of breath and weakness. Ventilatory dependent respiratory failure Likely secondary to CHF exacerbation Cardiogenic shock ? Pneumonia -CT Chest:Bilateral pleural effusion, right more than left associated with atelectasis of bilateral lower lobes. Pneumonia is possible. Slightly suboptimal exam due to lack of IV contrast. Follow-up evaluation after pleural effusion resolution is recommended for better evaluation of pulmonary parenchymal lesions. Ascites -Negative COVID Screen -Normal Procalcitonin -ECHO: EF less than 15%. Abnormal septal wall motion consistent with RV pressure/volume overload, severe global hypokinesis. Pulmonary hypertension PASP 50 mmHg -Blood cultures negative to date -Empirically on Zosyn -Continue vent support -Appreciate critical care input -Monitor volume status, I/Os, daily weight -Poor Prognosis Paroxysmal SVT on Amiodarone Rate controlled currently Hyperkalemia On IV insulin Received Lasix Also received Kayexalate Monitor electrolytes Also received Calcium chloride Hyponatremia Likely due to volume overload Monitor Acute kidney injury Likely due to cardiogenic shock Avoid nephrotoxic agents as able Monitor renal function Patient doesn't want dialysis as per Will DVT Px Heparin SQ Code Status Conditional Code Patient was thought to have multiorgan failure leading to very poor prognosis and was planned to be transition to comfort measures and terminally extubate initially. Patient was found to be in PEA and was pronounced to be at 8:28 AM by Mail Distributor. Family was updated. Total Time Total Time Spent Total Time Spent (In Minutes): 25 minutes Discharge Plan Discharge Items Patient Disposition: Discharge Diagnosis: Ventilatory dependent respiratory failure Likely secondary to CHF exacerbation Cardiogenic shock Paroxysmal SVT Hyperkalemia Hyponatremia Acute kidney injury Addtl Attending Provider Instructions: Patient at 8:28AM as per RN
--- NOTE | 2021-04-04 19:08 | Electrocardiogram Report ---
Test Reason : Blood Pressure : / mmHG Vent. Rate : 067 BPM Atrial Rate : 268 BPM P-R Int : 000 ms QRS Dur : 120 ms QT Int : 432 ms P-R-T Axes : 062 -65 138 degrees QTc Int : 456 ms Atrial flutter with 4:1 A-V conduction Left axis deviation Right bundle branch block Inferior infarct (cited on or before 02-APR-2021) Anterolateral infarct (cited on or before 02-APR-2021) Abnormal ECG When compared with ECG of 02-APR-2021 09:53, Vent. rate has decreased BY 50 BPM Confirmed by Antione Garcia ([id number]) on 04/04/2021 7:08:46 PM Referred By: REFERRED SELF Confirmed By:Antione Garcia
--- NOTE | 2021-04-04 20:00 | Electrocardiogram Report ---
Test Reason : Blood Pressure : / mmHG Vent. Rate : 151 BPM Atrial Rate : 151 BPM P-R Int : 094 ms QRS Dur : 122 ms QT Int : 276 ms P-R-T Axes : 088 -67 124 degrees QTc Int : 437 ms Atrial flutter with 2 to 1 block Left axis deviation Right bundle branch block Inferior infarct (cited on or before 02-APR-2021) Anterior infarct (cited on or before 02-APR-2021) T wave abnormality, consider lateral ischemia Abnormal ECG When compared with ECG of 02-APR-2021 17:02, (unconfirmed) Vent. rate has increased BY 84 BPM Confirmed by Antione Garcia ([id number]) on 04/04/2021 8:00:41 PM Referred By: REFERRED SELF Confirmed By:Antione Garcia
== END 2021-04-04 09:45 | disposition expired | DRG 208 ==
LOC: ED 09:28 → SUATTDRO 13:13 → 1E 13:13
DX: E11.22 Type 2 diabetes mellitus with diabetic chronic kidney disease; E87.1 Hypo-osmolality and hyponatremia; I42.0 Dilated cardiomyopathy; E87.2 Acidosis; E87.5 Hyperkalemia; J96.02 Acute respiratory failure with hypercapnia; Z79.84 Long term (current) use of oral hypoglycemic drugs; N18.30 Chronic kidney disease, stage 3 unspecified; I95.9 Hypotension, unspecified; J98.11 Atelectasis; Z51.5 Encounter for palliative care; I47.1 Supraventricular tachycardia; I48.92 Unspecified atrial flutter; J91.8 Pleural effusion in other conditions classified elsewhere; Z85.42 Personal history of malignant neoplasm of other parts of uterus; Z79.82 Long term (current) use of aspirin; I13.0 Hypertensive heart and chronic kidney disease with heart failure and stage 1 through stage 4 chronic kidney disease, or unspecified chronic kidney disease; E78.5 Hyperlipidemia, unspecified; R18.8 Other ascites; Z99.11 Dependence on respirator [ventilator] status; E86.0 Dehydration; R57.0 Cardiogenic shock; Z88.1 Allergy status to other antibiotic agents; E66.01 Morbid (severe) obesity due to excess calories; E53.8 Deficiency of other specified B group vitamins; I27.20 Pulmonary hypertension, unspecified; I50.23 Acute on chronic systolic (congestive) heart failure; N17.9 Acute kidney failure, unspecified; Z66 Do not resuscitate; Z68.41 Body mass index [BMI] 40.0-44.9, adult